=== PATIENT | male | born 1945 | race Caucasian/White ===

== ENCOUNTER → 2017-12-17 | Outpatient (CLI) | payer MEDICARE ==
--- NOTE | 2017-12-17 13:31 | XR ---
EXAMINATION TYPE: XR chest 2V DATE OF EXAM: 12/17/2017 COMPARISON: 04/07/2016 TECHNIQUE: PA and lateral views submitted. HISTORY: Left rib pain FINDINGS: The lungs are clear and there is no pneumothorax, pleural effusion, or focal pneumonia. Hypertrophi c change of the spine noted. There is a deformity of the left anterior seventh rib. IMPRESSION: 1. Findings suspicious for left anterior seventh rib fracture..
--- NOTE | 2017-12-17 13:32 | XR ---
EXAMINATION TYPE: XR ribs LT DATE OF EXAM: 12/17/2017 COMPARISON: NONE HISTORY: Pain TECHNIQUE: 4 views submitted FINDINGS: Deformity involving the anterolateral left seventh rib. Hypertrophic and degenerative adkins e of the spine. Slight deformity anterior lateral sixth rib. IMPRESSION: 1. Findings suspicious for minimally displaced fractures anterolateral left sixth and seventh ribs.
== END | disposition home or self-care (01) ==
LOC: RADXRYALE 11:38
PROVIDERS: ATTEND Internal Medicine
DX: S20.212A Contusion of left front wall of thorax, initial encounter (principal)
CPT/HCPCS: 71046

== ENCOUNTER 2018-06-28 09:54 | Observation (INO) | payer MEDICARE ==
[2018-06-28] MEDS ORDERED: SODIUM CHLORIDE 0.9% 1,000 ML IV STA (10:18)
--- NOTE | 2018-06-28 10:25 | ED ---
Abdominal Pain HPI - General Chief Complaint: Abdominal Pain Stated Complaint: pancreatitis Time Seen by Provider: 06/28/18 10:07 Source: patient, EMS, RN notes reviewed Mode of arrival: EMS Limitations: no limitations - History of Present Illness Initial Comments: This is a 73-year-old male who presents to the emergency department with chief complaint of abdominal pain. Patient states he feels he is having another episode of pancreatitis. He states he has had 7 episodes of pancreatitis in the past. Patient states that pain developed this morning at 7 AM. He describes the pain as sharp and stabbing and is located in the right lower abdomen. He states that this pain feels similar to the pain he has had in the past with other episodes of pancreatitis. Patient's only abdominal surgery has been a left hernia repair. Patient denies any testicular pain at this time. Patient denies fevers or chills, chest pain or shortness of breath, vomiting or diarrhea. He does state that earlier today he became clammy and felt nauseous. - Related Data Home Medications Medication Instructions Recorded Confirmed Losartan-Hctz 50-12.5 mg [Hyzaar 1 tab PO DAILY 05/02/15 06/28/18 50-12.5] Aspirin EC [Ecotrin Low Dose] 81 mg PO DAILY 06/28/18 06/28/18 Cholecalciferol [Vitamin D3] 1,000 unit PO HS 06/28/18 06/28/18 Allergies Allergy/AdvReac Type Severity Reaction Status Date / Time hydromorphone HCl AdvReac Anaphylaxis Verified 06/28/18 10:11 [From Dilaudid] Review of Systems ROS Statement: Those systems with pertinent positive or pertinent negative responses have been documented in the HPI. ROS Other: All systems not noted in ROS Statement are negative. Past Medical History Past Medical History: Hypertension Additional Past Medical History / Comment(s): pancreatitis History of Any Multi-Drug Resistant Organisms: None Reported Past Surgical History: Hernia Repair Past Psychological History: No Psychological Hx Reported Smoking Status: Never smoker Past Alcohol Use History: None Reported Past Drug Use History: None Reported General Exam - General Exam Comments Initial Comments: General: Awake and alert, well-developed; in no apparent distress. Pleasant and cooperative elderly male. is at bedside. HEENT: Head atraumatic, normocephalic. Pupils are equal, round and reactive to light. Extraocular movements intact. Oropharynx moist without erythema or exudate. Neck: Supple. Normal ROM. Cardiovascular: Regular rate and rhythm. No murmurs, rubs or gallops. Chest symmetrical. Respiratory: Lungs clear to auscultation bilaterally. No wheezes, rales or rhonchi. Normal respiratory effort with no use of accessory muscles. Abdomen: Firm, mildly distended. Tenderness on palpation of right lower quadrant with guarding. No rigidity. Non-reproducible mass noted in right inguinal region. Normal bowel sounds in all 4 quadrants. Musculoskeletal: Normal ROM, no tenderness bilateral upper and lower extremities. Skin: [place], warm and dry without rashes or lesions. Neurological: Alert and oriented x3. CN II-XII grossly intact. Speech is fluent and answers are appropriate. No focal neuro deficits. Psychiatric: Normal mood and affect. No overt signs of depression or anxiety noted. Limitations: no limitations Course Vital Signs 06/28/18 06/28/18 06/28/18 10:00 11:21 12:35 Temperature 97.9 F Pulse Rate 47 L 58 L 65 Respiratory 16 18 16 Rate Blood Pressure 171/81 170/84 181/87 O2 Sat by Pulse 98 98 98 Oximetry 06/28/18 06/28/18 13:29 14:00 Temperature 98.6 F Pulse Rate 47 L Respiratory 18 Rate Blood Pressure 160/77 139/68 O2 Sat by Pulse 98 Oximetry - Reevaluation(s) Reevaluation #1: Spoke with Dr. Huntley, radiologist who reports possible incarcerated right inguinal hernia as he does see inflammation and closed loop on computed tomography scan. This was discussed with patient who is resting comfortably at this time. He will be reexamined along with Dr. Ramirez. 06/28/18 12:24 Medical Decision Making - Medical Decision Making This is a 73-year-old male who presents to the emergency department with chief complaint of abdominal pain. Patient states he feels he is having another episode of pancreatitis as he has had 7 episodes in the past and this feels similar. However, on physical examination, there is tenderness with guarding at the right lower quadrant. Computed tomography scan of the abdomen and pelvis revealed evidence for a right inguinal hernia containing a segment of small bowel. CBC was within normal limits. Amylase is slightly elevated at 124 and lipase at 314. No evidence of acute pancreatitis on CT scan. Patient was reevaluated by myself and Dr. Ramirez. There is a mass palpated in the right inguinal region which is consistent with an incarcerated inguinal hernia. Patient will be admitted to Dr. Ryan. Patient is in agreement for admission. He is in no acute distress and pain is controlled. Computed tomography scan also revealed evidence for a 2 mm left lower lobe pulmonary nodule. This was discussed with patient and at bedside and recommended following up with primary care provider regarding this result. Patient is in agreement. - Lab Data Result diagrams: 06/28/18 09:59 06/28/18 09:59 Lab Results 06/28/18 06/28/18 06/28/18 Range/Units 09:59 09:59 12:10 WBC 5.8 (3.8-10.6) k/uL RBC 4.82 (4.30-5.90) m/uL Hgb 15.0 (13.0-17.5) gm/dL Hct 45.1 (39.0-53.0) % MCV 93.7 (80.0-100.0) fL MCH 31.2 (25.0-35.0) pg MCHC 33.3 (31.0-37.0) g/dL RDW 12.8 (11.5-15.5) % Plt Count 241 (150-450) k/uL Neutrophils % 72 % Lymphocytes % 18 % Monocytes % 7 % Eosinophils % 1 % Basophils % 1 % Neutrophils # 4.2 (1.3-7.7) k/uL Lymphocytes # 1.0 (1.0-4.8) k/uL Monocytes # 0.4 (0-1.0) k/uL Eosinophils # 0.1 (0-0.7) k/uL Basophils # 0.0 (0-0.2) k/uL Sodium 131 L (137-145) mmol/L Potassium 5.0 (3.5-5.1) mmol/L Chloride 95 L (98-107) mmol/L Carbon Dioxide 23 (22-30) mmol/L Anion Gap 13 mmol/L BUN 9 (9-20) mg/dL Creatinine 0.60 L (0.66-1.25) mg/dL Est GFR (CKD-EPI)AfAm >90 (>60 ml/min/1.73 sqM) Est GFR (CKD-EPI)NonAf >90 (>60 ml/min/1.73 sqM) Glucose 104 H (74-99) mg/dL Plasma Lactic Acid Peterson 0.9 (0.7-2.0) mmol/L Calcium 9.5 (8.4-10.2) mg/dL Total Bilirubin 1.0 (0.2-1.3) mg/dL AST 36 (17-59) U/L ALT 38 (21-72) U/L Alkaline Phosphatase 68 (38-126) U/L Total Protein 7.1 (6.3-8.2) g/dL Albumin 4.3 (3.5-5.0) g/dL Amylase 124 H (30-110) U/L Lipase 314 H (23-300) U/L Urine Color Urine Appearance (Clear) Urine pH (5.0-8.0) Ur Specific [place] (1.001-1.035) Urine Protein (Negative) Urine Glucose (UA) (Negative) Urine Ketones (Negative) Urine Blood (Negative) Urine Nitrite (Negative) Urine Bilirubin (Negative) Urine Urobilinogen (<2.0) mg/dL Ur Leukocyte Esterase (Negative) 06/28/18 Range/Units 12:10 WBC (3.8-10.6) k/uL RBC (4.30-5.90) m/uL Hgb (13.0-17.5) gm/dL Hct (39.0-53.0) % MCV (80.0-100.0) fL MCH (25.0-35.0) pg MCHC (31.0-37.0) g/dL RDW (11.5-15.5) % Plt Count (150-450) k/uL Neutrophils % % Lymphocytes % % Monocytes % % Eosinophils % % Basophils % % Neutrophils # (1.3-7.7) k/uL Lymphocytes # (1.0-4.8) k/uL Monocytes # (0-1.0) k/uL Eosinophils # (0-0.7) k/uL Basophils # (0-0.2) k/uL Sodium (137-145) mmol/L Potassium (3.5-5.1) mmol/L Chloride (98-107) mmol/L Carbon Dioxide (22-30) mmol/L Anion Gap mmol/L BUN (9-20) mg/dL Creatinine (0.66-1.25) mg/dL Est GFR (CKD-EPI)AfAm (>60 ml/min/1.73 sqM) Est GFR (CKD-EPI)NonAf (>60 ml/min/1.73 sqM) Glucose (74-99) mg/dL Plasma Lactic Acid Peterson (0.7-2.0) mmol/L Calcium (8.4-10.2) mg/dL Total Bilirubin (0.2-1.3) mg/dL AST (17-59) U/L ALT (21-72) U/L Alkaline Phosphatase (38-126) U/L Total Protein (6.3-8.2) g/dL Albumin (3.5-5.0) g/dL Amylase (30-110) U/L Lipase (23-300) U/L Urine Color Light Yellow Urine Appearance Clear (Clear) Urine pH 8.0 (5.0-8.0) Ur Specific [place] 1.017 (1.001-1.035) Urine Protein Negative (Negative) Urine Glucose (UA) Negative (Negative) Urine Ketones Negative (Negative) Urine Blood Negative (Negative) Urine Nitrite Negative (Negative) Urine Bilirubin Negative (Negative) Urine Urobilinogen <2.0 (<2.0) mg/dL Ur Leukocyte Esterase Negative (Negative) - Radiology Data Radiology results: report reviewed CT abdomen and pelvis with contrast impression: 1. There is a right inguinal hernia containing a segment of small bowel. There is some induration of the surrounding fat. Incarcerated hernia in the differential. Closed loop obstruction a consideration. Correlate clinically. 2. Correlate for mild chronic cystitis. Slightly asymmetric wall thickening along the right lateral margin of the bladder may be related to greater component of cystitis. Mucosal lesion not excluded. 3. Stable dilated pancreatic duct. 4. 2 mm left lower lobe pulmonary nodule too small to characterize could be followed on 6 month basis. Disposition Clinical Impression: Incarcerated right inguinal hernia, Left lower lobe pulmonary nodule Disposition: ADMITTED IP TO THIS [facility] Condition: Good Is patient prescribed a controlled substance at d/c from ED?: No Time of Disposition: 12:59
[2018-06-28 10:34] LABS: Basophils % (A) 1 %; Eosinophils # (A) 0.1 k/uL (0-0.7); Eosinophils % (A) 1 %; HCT 45.1 % (39.0-53.0); Lymphocytes % (A) 18 %; MCH 31.2 pg (25.0-35.0); MCHC 33.3 g/dL (31.0-37.0); MCV 93.7 fL (80.0-100.0); Mean Platelet Volume 6.6; Monocytes # (A) 0.4 k/uL (0-1.0); Monocytes % (A) 7 %; Neutrophils # (A) 4.2 k/uL (1.3-7.7); Neutrophils % (A) 72 %; Platelet Count 241 k/uL (150-450); RBC 4.82 m/uL (4.30-5.90); RDW 12.8 % (11.5-15.5); WBC 5.8 k/uL (3.8-10.6)
[2018-06-28 10:45] LABS: ALT 38 U/L (21-72); AST 36 U/L (17-59); Albumin 4.3 g/dL (3.5-5.0); Alkaline Phosphatase 68 U/L (38-126); Amylase 124 U/L (30-110); Anion Gap 13 mmol/L; Blood Urea Nitrogen 9 mg/dL (9-20); Calcium 9.5 mg/dL (8.4-10.2); Carbon Dioxide 23 mmol/L (22-30); Chloride 95 mmol/L (98-107); Glucose 104 mg/dL (74-99); Lipase 314 U/L (23-300); Sodium 131 mmol/L (137-145); Total Protein 7.1 g/dL (6.3-8.2)
[2018-06-28 12:22] LABS: Appearance,Urine Clear (Clear); Bilirubin,Urine Negative (Negative); Blood,Urine Negative (Negative); Color,Urine Light Yellow; Glucose,Urine (UA) Negative (Negative); Ketones,Urine Negative (Negative); Leukocyte Esterase,Urine Negative (Negative); Nitrite,Urine Negative (Negative); Protein,Urine Negative (Negative); Specific Gravity,Urine 1.017 (1.001-1.035); Urobilinogen,Urine <2.0 mg/dL (<2.0)
--- NOTE | 2018-06-28 12:25 | CT ---
EXAMINATION TYPE: CT abdomen pelvis w con DATE OF EXAM: 06/28/2018 COMPARISON: 05/30/2012 HISTORY: RLQ abdominal pain CT DLP: 1049 mGycm Automated exposure control for dose reduction was used. CONTRAST: CT scan of the abdomen pelvis is performed with IV Contrast, patient injected with 100 ml mL of Isovu e 300. FINDINGS- case discussed with ER referring clinician. LUNG BASES-there is a 2 mm nodule within the left lower lobe too small to characterize. Tiny bleb is seen. Coronary artery calcification noted.. LIVER/GB- No gross abnormality is appreciated. PANCREAS-stable prominence the pancreatic duct unchanged from prior exam.. SPLEEN- No gross abnormality is seen. ADRENALS- No gross abnormality is seen. KIDNEYS/BLADDER- no hydronephrosis or nephrolithiasis. Simple appearing left renal cyst noted.. BOWEL-appendix has a normal appearance. There is a right inguinal hernia containing a loop of small b owel. This may result in a degree of partial closed-loop obstruction. There does appear to be some quintanilla rrounding soft tissue edema within hernia sac. Correlate for incarceration or strangulation. No free fluid. Small hiatal hernia noted. Changes of diverticulosis of the colon. LYMPH NODES- No greater than 1cm abdominal or pelvic lymph nodes areappreciated. OSSEOUS STRUCTURES-hypertrophic and degenerative change of the spine. OTHER- atherosclerotic changes aorta with no evidence of aneurysm. There is mild thickening of the b ladder wall and there appears to be extension along the anterior lateral margin of the bladder wall o n the right which may represent a diverticulum. Findings stable. Metallic clips are seen near the scr otal sac. IMPRESSION- 1. There is a right inguinal hernia containing a segment of small bowel. There is some induration of the surrounding fat. Incarcerated hernia in the differential. Closed loop obstruction a consideration . Correlate clinically. 2. Correlate for mild chronic cystitis. Slightly asymmetric wall thickening along the right lateral m argin of the bladder may be related to greater component of cystitis. Mucosal lesion not excluded. 3. Stable dilated pancreatic duct. 4. 2 mm left lower lobe pulmonary nodule too small to characterize could be followed on six-month bas is.
[2018-06-28] MEDS ORDERED: KETOROLAC 30 MG/ML 1 ML VIAL IVP STA (13:08)
[2018-06-28] MEDS ORDERED: KETOROLAC 30 MG/ML 1 ML VIAL IVP PRN (13:10)
[2018-06-28] MEDS ORDERED: ACETAMINOPHEN TAB 325 MG TAB PO PRN (13:10)
[2018-06-28] MEDS ORDERED: NALOXONE 0.4 MG/ML 1 ML VIAL IV PRN (13:10)
[2018-06-28] MEDS ORDERED: ONDANSETRON 4 MG/2 ML VIAL IVP PRN ×2 (13:10→14:16)
[2018-06-28] MEDS ORDERED: hydrALAZINE HCL 20 MG/ML 1 ML VIAL IVP STA (13:23)
--- NOTE | 2018-06-28 13:56 | P.GSHP ---
History of Present Illness H&P Date: 06/28/18 Chief Complaint: Pain in the right groin The patient is a 73-year-old white male who developed the pain in the right groin since this morning at least about 5 or 6 hours ago progressively worsening. He presented to the emergency room. No past history of similar pain although has had multiple episodes of pancreatitis in the past. Slight nausea. No vomiting. Computed tomography scan revealed evidence of an incarcerated right inguinal hernia with the loop of small bowel in it though with some edema in the sac. Past history is otherwise healthy. Has a history of hypertension on Hyzaar. Takes baby aspirin daily and vitamin D. Previous surgery includes a left inguinal hernia repair and colonoscopies. No complications. Family history noncontributory. Systems review otherwise negative. No chest pain no cough hemoptysis. Some nausea. No urinary symptoms. Habits and he denies any rectal bleeding. Does have a history of the colon polyps. On examination the patient is awake alert well-built well-nourished in no acute distress quite cheerful. Vitals are normal. Fever. Hydration is good. Head and neck are normal. No cervical lymphadenopathy. Heart regular rhythm no murmurs. Lungs are clear to P&A. Abdomen is mildly distended. Has very localized tenderness in the right groin with a mass consistent with an incarcerated right inguinal hernia. It's quite tender. Irreducible. Scar in the left groin from previous hernia repair. Extremities normal with full motion. [employer] grossly intact no focal deficits. Impression incarcerated the right inguinal hernia. History of hypertension. Recommendation recommend immediate surgical intervention with repair the right inguinal hernia with or without mesh possible bowel resection. Procedure was explained to the patient including potential complication particular bleeding infection hematoma seroma increased risk for bleeding since he is currently takes aspirin etc. He understood and agree to proceed. Past Medical History Past Medical History: Hypertension Additional Past Medical History / Comment(s): pancreatitis History of Any Multi-Drug Resistant Organisms: None Reported Past Surgical History: Hernia Repair Past Psychological History: No Psychological Hx Reported Smoking Status: Never smoker Past Alcohol Use History: None Reported Past Drug Use History: None Reported Medications and Allergies Home Medications Medication Instructions Recorded Confirmed Type Losartan-Hctz 50-12.5 mg [Hyzaar 1 tab PO DAILY 05/02/15 06/28/18 History 50-12.5] Aspirin EC [Ecotrin Low Dose] 81 mg PO DAILY 06/28/18 06/28/18 History Cholecalciferol [Vitamin D3] 1,000 unit PO HS 06/28/18 06/28/18 History Allergies Allergy/AdvReac Type Severity Reaction Status Date / Time hydromorphone HCl AdvReac Anaphylaxis Verified 06/28/18 10:11 [From Dilaudid] Surgical - Exam Vital Signs Temp Pulse Resp BP Pulse Ox 97.9 F 47 L 16 171/81 98 06/28/18 10:00 06/28/18 10:00 06/28/18 10:00 06/28/18 10:00 06/28/18 10:00 Results - Labs 06/28/18 09:59 06/28/18 09:59 Abnormal Lab Results - Last 24 Hours (Table) 06/28/18 Range/Units 09:59 Sodium 131 L (137-145) mmol/L Chloride 95 L (98-107) mmol/L Creatinine 0.60 L (0.66-1.25) mg/dL Glucose 104 H (74-99) mg/dL Amylase 124 H (30-110) U/L Lipase 314 H (23-300) U/L Diabetes panel 06/28/18 Range/Units 09:59 Sodium 131 L (137-145) mmol/L Potassium 5.0 (3.5-5.1) mmol/L Chloride 95 L (98-107) mmol/L Carbon Dioxide 23 (22-30) mmol/L BUN 9 (9-20) mg/dL Creatinine 0.60 L (0.66-1.25) mg/dL Glucose 104 H (74-99) mg/dL Calcium 9.5 (8.4-10.2) mg/dL AST 36 (17-59) U/L ALT 38 (21-72) U/L Alkaline Phosphatase 68 (38-126) U/L Total Protein 7.1 (6.3-8.2) g/dL Albumin 4.3 (3.5-5.0) g/dL Calcium panel 06/28/18 Range/Units 09:59 Calcium 9.5 (8.4-10.2) mg/dL Albumin 4.3 (3.5-5.0) g/dL Pituitary panel 06/28/18 Range/Units 09:59 Sodium 131 L (137-145) mmol/L Potassium 5.0 (3.5-5.1) mmol/L Chloride 95 L (98-107) mmol/L Carbon Dioxide 23 (22-30) mmol/L BUN 9 (9-20) mg/dL Creatinine 0.60 L (0.66-1.25) mg/dL Glucose 104 H (74-99) mg/dL Calcium 9.5 (8.4-10.2) mg/dL Adrenal panel 06/28/18 Range/Units 09:59 Sodium 131 L (137-145) mmol/L Potassium 5.0 (3.5-5.1) mmol/L Chloride 95 L (98-107) mmol/L Carbon Dioxide 23 (22-30) mmol/L BUN 9 (9-20) mg/dL Creatinine 0.60 L (0.66-1.25) mg/dL Glucose 104 H (74-99) mg/dL Calcium 9.5 (8.4-10.2) mg/dL Total Bilirubin 1.0 (0.2-1.3) mg/dL AST 36 (17-59) U/L ALT 38 (21-72) U/L Alkaline Phosphatase 68 (38-126) U/L Total Protein 7.1 (6.3-8.2) g/dL Albumin 4.3 (3.5-5.0) g/dL
[2018-06-28] MEDS ORDERED: ceFAZolin 2,000 MG in DEXTROSE/WATER 1 50ML.BAG IVPB STA (13:57)
[2018-06-28] MEDS ORDERED: ceFAZolin IN SWFI 2 GM/20 ML SYRINGE IVP STA (13:59)
[2018-06-28] MEDS ORDERED: IV FLUID CONTINUATION 1,000 ML IV ONE (14:12)
[2018-06-28] MEDS ORDERED: fentaNYL (PF) 50 MCG/ML 2 ML AMP ONE (14:34)
[2018-06-28] MEDS ORDERED: LIDOCAINE 1% INJ 10MG/ML (20 ML MDV) ONE (14:34)
[2018-06-28] MEDS ORDERED: ROCURONIUM BROMIDE 10 MG/ML 10 ML VIAL IV ONE (14:34)
[2018-06-28] MEDS ORDERED: PROPOFOL 10 MG/ML 20 ML VIAL IV ONE (14:34)
[2018-06-28] MEDS ORDERED: MIDAZOLAM 2 MG/2 ML VIAL ONE (14:34)
[2018-06-28] MEDS ORDERED: NEOSTIGMINE 1 MG/ML 10 ML VIAL ONE (14:34)
[2018-06-28] MEDS ORDERED: ePHEDrine SULFATE/0.9% NACL/PF 50 MG/5 ML SYRINGE IV ONE (14:34)
[2018-06-28] MEDS ORDERED: GLYCOPYRROLATE 0.2 MG/ML 2 ML VIAL ONE (14:34)
[2018-06-28] MEDS ORDERED: SUCCINYLCHOLINE CHLORIDE 100 MG/5 ML SYR IV ONE (14:34)
[2018-06-28] MEDS ORDERED: SODIUM CHLORIDE 0.9% 100 ML with ceFAZolin 2,000 MG IV ONE ×2 (14:45)
[2018-06-28] MEDS ORDERED: ROPIVACAINE 5 MG/ML 30 ML VIAL MISCELLANE ONE ×2 (14:51)
[2018-06-28] MEDS ORDERED: LACTATED RINGERS 1,000 ML IV ONE (15:13)
--- NOTE | 2018-06-28 15:53 | P.OP ---
Date of Procedure: 06/28/18 Preoperative Diagnosis: Incarcerated right inguinal hernia Postoperative Diagnosis: Incarcerated right inguinal hernia direct Procedure(s) Performed: Right inguinal hernia repair with Prolene mesh Anesthesia: VITALY Surgeon: Len Walker Estimated Blood Loss (ml): 10 Pathology: none sent Condition: stable Disposition: PACU Indications for Procedure: The patient is a 73-year-old white male with about 5-6 hour history of a painful mass in the right groin. When examined he had a very tender mass in the right inguinal hip area to the intended to try to reduce. CT confirmed an incarcerated right inguinal hernia containing small bowel. Immediate repair was recommended and informed consent was obtained. Operative Findings: Incarcerated right direct inguinal hernia Description of Procedure: After induction of general endotracheal anesthesia the abdominal wall groin and genitalia were prepped and fashion and draped. Local anesthetic Marcaine 0.5% plain was infiltrated into the skin and subcutaneous tissues along the line of the incision which was made above and parallel to the right inguinal ligament. The external oblique aponeurosis was then infiltrated with the Marcaine and incised in the direction of its fibers. Upper and lower flaps were created. During this dissection the hernia spontaneously reduced the direct the type of hernia protruding through the floor. There was no significant edema or swelling or infection or drainage from the sac. The cord structures were explored and there was no evidence of any indirect component. The direct defect was closed by approximation of the transversalis fascia with running 2-0 Prolene. The floor was then reinforced with the Prolene mesh one and three- quarter inches by 2 and three-quarter inches to the pubic tubercle and shelving edge of the inguinal ligament with running 2-0 Prolene inferiorly and to the conjoined tendon and internal oblique aponeurosis superiorly. The tails were then approximated after the mesh was split laterally to the cord structures with the Prolene with a snug fit around the cord structures at the internal ring with the upper flap being approximated to the lower flap as well as to the shelving edge of the inguinal ligament. The wound with thoroughly irrigated. Ilioinguinal nerve was left intact. The external oblique aponeurosis were then closed over the cord structures with running 3-0 Prolene Kristan's fascia with interrupted 4-0 Vicryl and the skin with 4-0 Monocryl subcuticular suture and Steri-Strips. Dressings were applied. All counts were correct. Blood loss was negligible less than 5 mls. The patient remained stable was transferred to the recovery room in good and stable condition.
[2018-06-28] MEDS ORDERED: ceFAZolin 2,000 MG in DEXTROSE/WATER 1 50ML.BAG IVPB SCH (16:00)
[2018-06-28 16:09] VITALS: RESP 16
[2018-06-28] MEDS: SODIUM CHLORIDE 0.9% 1,000 ML IV SCH (16:49)
[2018-06-28 16:54] VITALS: BMI 26.6
[2018-06-28] MEDS: traMADol 50 MG TAB PO SCH ×2 (17:51→21:13)
[2018-06-28] MEDS ORDERED: METOCLOPRAMIDE 5 MG/ML 2 ML VIAL IVP PRN (18:00)
[2018-06-28] MEDS: ceFAZolin IN SWFI 2 GM/20 ML SYRINGE IVP SCH (21:12)
[2018-06-29] MEDS: ceFAZolin IN SWFI 2 GM/20 ML SYRINGE IVP SCH (05:15)
[2018-06-29] MEDS: SODIUM CHLORIDE 0.9% 1,000 ML IV SCH (05:16)
--- NOTE | 2018-06-29 06:42 | CONS ---
CONSULTATION DATE OF SERVICE: 06/28/2018 REASON FOR CONSULTATION: Advice regarding hypertension and multiple other medical issues requested by Dr. Walker. HISTORY OF PRESENT ILLNESS: This 73-year-old gentleman with a past medical history of hypertension, pancreatitis being followed by Dr. Jordan in the outpatient setting was admitted with abdominal pain and features incarcerated right inguinal hernia. Dr. Walker performed right inguinal hernia repair with Prolene mesh. The patient tolerated the procedure well. There is no history of chest pain. No history of palpitations. No history of headache, loss of consciousness, nausea, vomiting, diarrhea, fever, rigors or chills. PAST MEDICAL HISTORY: History of hypertension, history of pancreatitis. MEDICATIONS: Medications prior to admission include: 1. Losartan hydrochlorothiazide 50/12.5 mg p.o. daily. 2. Vitamin D3, 1000 at bedtime. 3. Ecotrin 81 mg p.o. daily. ALLERGIES: Allergies are DILAUDID. FAMILY HISTORY: No history of heart disease or strokes in the family. SOCIAL HISTORY: No history of smoking. No history of alcohol intake. REVIEW OF SYSTEMS: ENT: No diminished hearing or diminished vision. CARDIOVASCULAR SYSTEM: No angina. RESPIRATORY SYSTEM: No cough or hemoptysis. GI: As mentioned earlier. : No dysuria. NERVOUS SYSTEM: No numbness or weakness. ALLERGY/IMMUNOLOGY: No history of asthma or hayfever. MUSCULOSKELETAL: As mentioned earlier. HEMATOLOGY: No history of anemia. ENDOCRINE: No history of diabetes or hypothyroidism. CONSTITUTIONAL: As mentioned earlier. DERMATOLOGY: Negative. RHEUMATOLOGY: Negative. PSYCHIATRY: As mentioned earlier. PHYSICAL EXAMINATION: The patient is alert and oriented x3. The pulse is 82, blood pressure 144/76, respirations 16, temperature 98 degrees, pulse ox 96% on room air. HEENT: Conjunctivae normal. Oral mucosa moist. NECK: No jugular venous distention. No carotid bruit. No lymph node enlargement. CARDIOVASCULAR: S1 and S2 muffled. RESPIRATORY: Breath sounds diminished at the bases. No rhonchi. No crackles. ABDOMEN: Soft. Otherwise, status post surgery. LEGS: No edema, no swelling. NERVOUS SYSTEM: Higher functions as mentioned earlier. Moves all 4 limbs. No focal motor or sensory deficits. LYMPHATICS: No lymphadenopathy of the neck, axillae or groin. SKIN: No ulcer, rash or bleeding. LABS: CBC within normal limits. Sodium is 131. Amylase 124 and lipase 314. ASSESSMENT: 1. Status post right inguinal hernia repair for incarcerated right inguinal hernia. 2. Hypertension. 3. Mild hyponatremia. 4. Increased amylase, lipase. RECOMMENDATIONS AND DISCUSSION: This 73-year-old gentleman who presented with multiple medical issues. At this time, I recommend to continue and resume the home medications, DVT prophylaxis and incentive spirometry. Repeat labs. Recommend close follow up with Dr. Jordan in the outpatient setting. Thank you Dr. Walker for letting us participate in the care of this patient. MMODL / IJN: [id number] /
--- NOTE | 2018-06-29 07:47 | P.DS ---
Providers Date of admission: 06/28/18 13:24 Attending physician: Len Walker Consults: 06/28/18 15:43 Consult Physician Routine Consulting Provider: Armani Younger Consult Reason/Comments: medical mx Do you want consulting provider notified?: Yes Primary care physician: Carito Jordan Patient Condition at Discharge: Good Plan - Discharge Summary Discharge Rx Participant: No New Discharge Prescriptions: New traMADol HCl [Ultram] 50 mg PO Q4HR PRN 3 Days #18 tab PRN Reason: Pain No Action Losartan-Hctz 50-12.5 mg [Hyzaar 50-12.5] 1 tab PO DAILY Cholecalciferol [Vitamin D3] 1,000 unit PO HS Discharge Medication List Losartan-Hctz 50-12.5 mg [Hyzaar 50-12.5] 1 tab PO DAILY 05/02/15 [History] Cholecalciferol [Vitamin D3] 1,000 unit PO HS 06/28/18 [History] traMADol HCl [Ultram] 50 mg PO Q4HR PRN 3 Days #18 tab 06/29/18 [Rx] Follow up Appointment(s)/Referral(s): Len Walker MD [STAFF PHYSICIAN] - 1 Week Carito Jordan MD [Primary Care Provider] - 2 Weeks Activity/Diet/Wound Care/Special Instructions: Remove dressing tomorrow a.m. May shower from tomorrow. Ambulate 4-5 times a day. No heavy lifting or straining for a month. Hold aspirin for 3 days. Colace 1 daily. Laxative as needed.
[2018-06-29 07:51] LABS: Amylase 52 U/L (30-110); Lipase 58 U/L (23-300)
--- NOTE | 2018-06-29 07:55 | P.PN ---
Progress Note - Text Progress Note Date: 06/29/18 The patient had repair for an incarcerated right inguinal hernia with mesh yesterday. Coming along fairly well. Tolerated his dinner last night and breakfast. Denies nausea or vomiting. Passing flatus. On examination he is afebrile. Vitals are stable. Abdomen is fairly soft nondistended. No significant swelling in the right groin and no hematoma or significant bruising. Testicle is of normal size. Royal impression satisfactory postoperative course. Recommendation we'll discharge today. Follow-up in the office in a week. Hold aspirin for 3 days. Tramadol for pain. No heavy lifting for a month.
[2018-06-29 08:55] VITALS: BP 159/80; PULSE 69; TEMP 98.8
[2018-06-29] MEDS ORDERED: LOSARTAN-HCTZ 50-12.5 MG 1 EACH TAB PO SCH (09:00)
[2018-06-29] MEDS ORDERED: DOCUSATE 100 MG CAP PO SCH (09:00)
[2018-06-29] MEDS: traMADol 50 MG TAB PO SCH (10:33)
--- NOTE | 2018-06-29 15:17 | P.PN ---
Subjective Patient is admitted for right inguinal hernia repair patient is clinically doing well postoperatively is being discharged today. Patient did not receive any antidepressants medications here patient blood pressures bit elevated but patient is bit hyponatremic because of which had chlorothiazide will be discontinued patient will be discharged on losartan and he may require a higher dose of losartan because of high normal potassium I'm not increasing it. Patient was asked to check the blood pressure at home and take it to though she can titrate the medications. And hydrochlorothiazide will be discontinued because of hyponatremia. Constitutional: Denied any fatigue denied any fever. Cardio vascular: denied any chest pain, palpitations Gastrointestinal denied any nausea vomiting Pulmonary: Denied any shortness of breath cough Neurologic denied any new focal deficits Objective - Vital Signs Vital signs: Vital Signs Temp 98.8 F 06/29/18 07:54 Pulse 69 06/29/18 07:54 Resp 16 06/29/18 07:54 BP 159/80 06/29/18 07:54 Pulse Ox 94 L 06/29/18 07:54 Intake & Output 06/28/18 06/29/18 06/29/18 18:59 06:59 18:59 Intake Total 700 1000 250 Output Total 510 950 650 Balance 190 50 -400 Weight 74.843 kg Intake: IV 700 Intake, IV Titration 800 Amount Sodium Chloride 0.9% 100 800 ml @ 0 mls/hr IV .STK-MED ONE with ceFAZolin 2,000 mg Rx#:[id number] Oral 250 Other 200 Output: Urine 500 950 650 Estimated Blood Loss 10 - Exam PHYSICAL EXAMINATION: GENERAL: The patient is alert and oriented x3, not in any acute distress. Well developed, well nourished. HEENT: Pupils are round and equally reacting to light. EOMI. No scleral icterus. No conjunctival pallor. Normocephalic, atraumatic. No pharyngeal erythema. No thyromegaly. CARDIOVASCULAR: S1 and S2 present. No murmurs, rubs, or gallops. PULMONARY: Chest is clear to auscultation, no wheezing or crackles. ABDOMEN: Soft, nontender, nondistended, normoactive bowel sounds. No palpable organomegaly. MUSCULOSKELETAL: No joint swelling or deformity. EXTREMITIES: No cyanosis, clubbing, or pedal edema. NEUROLOGICAL: Gross neurological examination did not reveal any focal deficits. SKIN: No rashes. - Labs CBC & Chem 7: 06/28/18 09:59 06/28/18 09:59 Labs: Microbiology - Last 24 Hours (Table) 06/28/18 12:10 Blood Culture - Preliminary Blood No Growth after 24 hours Assessment and Plan Plan: -Status post repair of incarcerated right inguinal hernia -Hypertension further management as mentioned above -Hyponatremia secondary to hydrochlorothiazide which is being discontinued
[2018-06-29] MEDS ORDERED: CHOLECALCIFEROL 1,000 UNIT TAB PO SCH (21:00)
== END 2018-06-29 11:19 | disposition home or self-care (01) ==
LOC: EC 09:54 → 3SUR 13:24
PROVIDERS: ADMIT Surgery; ATTEND Surgery
DX: K40.30 Unilateral inguinal hernia, with obstruction, without gangrene, not specified as recurrent (principal); R91.1 Solitary pulmonary nodule; K85.90 Acute pancreatitis without necrosis or infection, unspecified; I10 Essential (primary) hypertension; E87.1 Hypo-osmolality and hyponatremia; T50.2X5A Adverse effect of carbonic-anhydrase inhibitors, benzothiadiazides and other diuretics, initial encounter; R50.9 Fever, unspecified; I69.351 Hemiplegia and hemiparesis following cerebral infarction affecting right dominant side; Z86.010 Personal history of colon polyps; Z79.899 Other long term (current) drug therapy; Z79.82 Long term (current) use of aspirin; Z88.5 Allergy status to narcotic agent
CPT/HCPCS: 49507; 99285; 96361 ×2; 96374 ×2; 36415; 80053; 82150 ×2; 83605; 83690 ×2; 85025; 81003; 87040; 74177; G0378 ×2; C1781; J2250; J2710; J2001; J3010; J1885; J0690 ×3; J2795; J0330; J2704; Q9967

== ENCOUNTER → 2021-01-30 | Outpatient (CLI) | payer MEDICARE ==
--- NOTE | 2021-01-30 17:15 | XR ---
Right shoulder HISTORY: Right shoulder pain 3 views the right shoulder Bone mineralization, joint spaces and alignment are maintained. Right lung as visualized is normal. S ome mild spurring present at the acromioclavicular joint. IMPRESSION: Acromioclavicular joint arthropathy.
== END ==
LOC: RADXRYALE 16:25
PROVIDERS: ATTEND Internal Medicine
DX: M12.811 Other specific arthropathies, not elsewhere classified, right shoulder (principal)

== ENCOUNTER 2021-02-08 18:35 | Emergency (ER) | payer MEDICARE ==
[2021-02-08 18:41] VITALS: RESP 18; TEMP 97.6
[2021-02-08] MEDS ORDERED: SODIUM CHLORIDE 0.9% 1,000 ML IV STA (19:08)
[2021-02-08] MEDS ORDERED: KETOROLAC 15 MG/ML 1 ML VIAL IVP STA (19:08)
[2021-02-08] MEDS ORDERED: ONDANSETRON 4 MG/2 ML VIAL IVP STA (19:08)
--- NOTE | 2021-02-08 19:11 | ED ---
Abdominal Pain HPI - General Chief Complaint: Abdominal Pain Stated Complaint: Abd pain Time Seen by Provider: 02/08/21 18:58 Source: patient Mode of arrival: ambulatory Limitations: no limitations - History of Present Illness Initial Comments: Patient is a 76-year-old male, with history of hypertension, pancreatitis, presenting to the emergency Department with concerns of possible pancreatitis. Patient states he started having some abdominal pain this morning, seems to be in the middle of his abdomen also epigastric area. He denies any radiation. He states he was outside helping his son for most of the day, did not drink any water. Patient states when he got back and he did drink a ton of water and it did seem to help his pain but he came in for evaluation anyway. He does admit to some mild nausea, no vomiting. He denies any fever or chills, no chest pain or shortness of breath. He states he had a normal bowel movement today. He den ies any hematuria or dysuria. He has history of 2 hernia repairs, no other abdominal surgeries. He has no further complaints at this time. Upon arrival to the ER, his vital signs are stable. - Related Data Home Medications Medication Instructions Recorded Confirmed Cholecalciferol [Vitamin D3] 1,000 unit PO HS 06/28/18 06/28/18 Previous Rx's Medication Instructions Recorded Losartan [Cozaar] 50 mg PO DAILY #30 tab 06/29/18 traMADol HCl [Ultram] 50 mg PO Q4HR PRN 3 Days #18 tab 06/29/18 Allergies Allergy/AdvReac Type Severity Reaction Status Date / Time hydromorphone HCl AdvReac Anaphylaxis Verified 02/08/21 18:40 [From Dilaudid] Review of Systems ROS Statement: Those systems with pertinent positive or pertinent negative responses have been documented in the HPI. ROS Other: All systems not noted in ROS Statement are negative. Past Medical History Past Medical History: Hypertension Additional Past Medical History / Comment(s): pancreatitis History of Any Multi-Drug Resistant Organisms: None Reported Past Surgical History: Hernia Repair Past Psychological History: No Psychological Hx Reported Smoking Status: Former smoker Past Alcohol Use History: None Reported Past Drug Use History: None Reported General Exam - General Exam Comments Initial Comments: GENERAL: Patient is well-developed and well-nourished. Patient is nontoxic and in no acute distress. HEAD: Atraumatic, normocephalic. EYES: Pupils equal round and reactive to light, extraocular movements intact, sclera anicteric, conjunctiva are normal. Eyelids were unremarkable. ENT: TMs normal, nares patent, oropharynx clear without exudates. Moist mucous membranes. NECK: Normal range of motion, supple without lymphadenopathy or JVD. LUNGS: Unlabored respirations. Breath sounds clear to auscultation bilaterally and equal. No wheezes rales or rhonchi. HEART: Regular rate and rhythm without murmurs, rubs or gallops. ABDOMEN: Soft, mildly tender epigastric area, normoactive bowel sounds. No guarding, no rebound. No masses appreciated. : Deferred MUSCULOSKELETAL: Normal extremities with adequate strength and normal range of motion, no pitting or edema. No clubbing or cyanosis. NEUROLOGICAL: Patient is alert and oriented x 3. Motor and sensory are also intact. Cranial nerves II through XII grossly intact. Symmetrical smile. Normal speech, normal gait. PSYCH: Normal mood, normal affect. SKIN: Warm, Dry, normal turgor, no rashes or lesions noted. Limitations: no limitations Course Vital Signs 02/08/21 02/08/21 18:38 22:40 Temperature 97.6 F Pulse Rate 81 71 Respiratory 18 18 Rate Blood Pressure 160/90 154/94 O2 Sat by Pulse 98 98 Oximetry Medical Decision Making - Medical Decision Making Patient is a 76-year-old male with history hypertension, pancreatitis, prese nting with concerns of abdominal pain that started this morning. He does have some mild nausea. He is mildly tender in epigastric area. No fevers, normal bowel movements. His vital signs are stable. Labs show a mildly elevated white count at 14.1, sodium is low at 127, lactic acid is normal at 0.9. Amylase is elevated at almost 2000, lipase is 14,000, urine is normal. KUB shows no acute process. Patient was given a liter bolus, Zofran and some Toradol. He has been resting very comfortably in the ER. I discussed with patient that I do recommend admission for pancreatitis, hyponatremia. Patient states that he has dealt with this before and just wants to be discharged home. I discussed the risks of complications surrounding pancreatitis and hyponatremia, including , and patient still wishes to be discharged home. He states he'll follow- up with his doctor on Wednesday for repeat labs. Patient will sign out AMA. Strict return parameters were discussed with the patient and he verbalized understanding. Case discussed with Dr. Bay. - Lab Data Result diagrams: 02/08/21 19:14 02/08/21 19:14 Lab Results 02/08/21 02/08/21 02/08/21 Range/Units 19:14 19:14 19:14 WBC 14.1 H (3.8-10.6) k/uL RBC 4.55 (4.30-5.90) m/uL Hgb 14.3 (13.0-17.5) gm/dL Hct 42.6 (39.0-53.0) % MCV 93.5 (80.0-100.0) fL MCH 31.4 (25.0-35.0) pg MCHC 33.6 (31.0-37.0) g/dL RDW 12.8 (11.5-15.5) % Plt Count 251 (150-450) k/uL MPV 7.2 Neutrophils % 86 % Lymphocytes % 8 % Monocytes % 4 % Eosinophils % 1 % Basophils % 0 % Neutrophils # 12.2 H (1.3-7.7) k/uL Lymphocytes # 1.1 (1.0-4.8) k/uL Monocytes # 0.6 (0-1.0) k/uL Eosinophils # 0.1 (0-0.7) k/uL Basophils # 0.1 (0-0.2) k/uL PT 10.4 (9.0-12.0) sec INR 1.0 (<1.2) APTT 25.4 (22.0-30.0) sec Sodium 127 L (137-145) mmol/L Potassium 4.3 (3.5-5.1) mmol/L Chloride 92 L (98-107) mmol/L Carbon Dioxide 25 (22-30) mmol/L Anion Gap 10 mmol/L BUN 14 (9-20) mg/dL Creatinine 0.61 L (0.66-1.25) mg/dL Est GFR (CKD-EPI)AfAm >90 (>60 ml/min/1.73 sqM) Est GFR (CKD-EPI)NonAf >90 (>60 ml/min/1.73 sqM) Glucose 100 H (74-99) mg/dL Plasma Lactic Acid Peterson (0.7-2.0) mmol/L Calcium 9.6 (8.4-10.2) mg/dL Total Bilirubin 0.9 (0.2-1.3) mg/dL AST 82 H (17-59) U/L ALT 46 (4-49) U/L Alkaline Phosphatase 80 (38-126) U/L Total Protein 7.3 (6.3-8.2) g/dL Albumin 4.3 (3.5-5.0) g/dL Amylase 1984 H* (30-110) U/L Lipase 68032 H (23-300) U/L Urine Color Urine Appearance (Clear) Urine pH (5.0-8.0) Ur Specific [place] (1.001-1.035) Urine Protein (Negative) Urine Glucose (UA) (Negative) Urine Ketones (Negative) Urine Blood (Negative) Urine Nitrite (Negative) Urine Bilirubin (Negative) Urine Urobilinogen (<2.0) mg/dL Ur Leukocyte Esterase (Negative) 02/08/21 02/08/21 Range/Units 19:14 20:51 WBC (3.8-10.6) k/uL RBC (4.30-5.90) m/uL Hgb (13.0-17.5) gm/dL Hct (39.0-53.0) % MCV (80.0-100.0) fL MCH (25.0-35.0) pg MCHC (31.0-37.0) g/dL RDW (11.5-15.5) % Plt Count (150-450) k/uL MPV Neutrophils % % Lymphocytes % % Monocytes % % Eosinophils % % Basophils % % Neutrophils # (1.3-7.7) k/uL Lymphocytes # (1.0-4.8) k/uL Monocytes # (0-1.0) k/uL Eosinophils # (0-0.7) k/uL Basophils # (0-0.2) k/uL PT (9.0-12.0) sec INR (<1.2) APTT (22.0-30.0) sec Sodium (137-145) mmol/L Potassium (3.5-5.1) mmol/L Chloride (98-107) mmol/L Carbon Dioxide (22-30) mmol/L Anion Gap mmol/L BUN (9-20) mg/dL Creatinine (0.66-1.25) mg/dL Est GFR (CKD-EPI)AfAm (>60 ml/min/1.73 sqM) Est GFR (CKD-EPI)NonAf (>60 ml/min/1.73 sqM) Glucose (74-99) mg/dL Plasma Lactic Acid Peterson 0.9 (0.7-2.0) mmol/L Calcium (8.4-10.2) mg/dL Total Bilirubin (0.2-1.3) mg/dL AST (17-59) U/L ALT (4-49) U/L Alkaline Phosphatase (38-126) U/L Total Protein (6.3-8.2) g/dL Albumin (3.5-5.0) g/dL Amylase (30-110) U/L Lipase (23-300) U/L Urine Color Yellow Urine Appearance Clear (Clear) Urine pH 7.0 (5.0-8.0) Ur Specific [place] 1.011 (1.001-1.035) Urine Protein Negative (Negative) Urine Glucose (UA) Negative (Negative) Urine Ketones Negative (Negative) Urine Blood Negative (Negative) Urine Nitrite Negative (Negative) Urine Bilirubin Negative (Negative) Urine Urobilinogen <2.0 (<2.0) mg/dL Ur Leukocyte Esterase Negative (Negative) Disposition Clinical Impression: Pancreatitis, Hyponatremia Disposition: Left Against Medical Advice Instructions (If sedation given, give patient instructions): Pancreatitis (ED) Additional Instructions: Please return to the Emergency Department if symptoms worsen or any other concerns. These follow-up with your primary care physician on Wednesday to recheck sodium levels and lipase. Continue with clear liquid diet for one to 2 days. Is patient prescribed a controlled substance at d/c from ED?: No Referrals: Carito Jordan MD [Primary Care Provider] - 1-2 days
[2021-02-08 19:23] LABS: Basophils # (A) 0.1 k/uL (0-0.2); Basophils % (A) 0 %; Eosinophils # (A) 0.1 k/uL (0-0.7); Eosinophils % (A) 1 %; HCT 42.6 % (39.0-53.0); HGB 14.3 gm/dL (13.0-17.5); Lymphocytes # (A) 1.1 k/uL (1.0-4.8); Lymphocytes % (A) 8 %; MCH 31.4 pg (25.0-35.0); MCHC 33.6 g/dL (31.0-37.0); MCV 93.5 fL (80.0-100.0); Mean Platelet Volume 7.2; Monocytes # (A) 0.6 k/uL (0-1.0); Monocytes % (A) 4 %; Neutrophils # (A) 12.2 k/uL (1.3-7.7); Neutrophils % (A) 86 %; Platelet Count 251 k/uL (150-450); RBC 4.55 m/uL (4.30-5.90); RDW 12.8 % (11.5-15.5); WBC 14.1 k/uL (3.8-10.6)
[2021-02-08 19:38] LABS: Partial Thromboplastin Time 25.4 sec (22.0-30.0); Prothrombin Time 10.4 sec (9.0-12.0)
--- NOTE | 2021-02-08 19:45 | XR ---
EXAMINATION TYPE: XR KUB DATE OF EXAM: 02/08/2021 COMPARISON: 05/02/2015 HISTORY: Double pain TECHNIQUE: 2 views FINDINGS: The bowel gas pattern is normal. There is no sign of intestinal obstruction or pneumoperito neum. Fecal pattern is normal. There are no pathologic calcifications over the kidneys. There is mild spurring in the lower lumbar spine. Lung bases are clear. IMPRESSION: Nonacute abdomen. No adverse change.
[2021-02-08 19:53] LABS: ALT 46 U/L (4-49); AST 82 U/L (17-59); African American GFR (CKD) >90 (>60 ml/min/1.73 sqM); Albumin 4.3 g/dL (3.5-5.0); Alkaline Phosphatase 80 U/L (38-126); Anion Gap 10 mmol/L; Blood Urea Nitrogen 14 mg/dL (9-20); Calcium 9.6 mg/dL (8.4-10.2); Carbon Dioxide 25 mmol/L (22-30); Chloride 92 mmol/L (98-107); Glucose 100 mg/dL (74-99); Non-African American GFR(CKD) >90 (>60 ml/min/1.73 sqM); Potassium 4.3 mmol/L (3.5-5.1); Sodium 127 mmol/L (137-145); Total Bilirubin 0.9 mg/dL (0.2-1.3); Total Protein 7.3 g/dL (6.3-8.2)
[2021-02-08 20:11] LABS: Amylase 1984 U/L (30-110)
[2021-02-08 20:50] LABS: Lipase 14072 U/L (23-300)
[2021-02-08 21:20] LABS: Appearance,Urine Clear (Clear); Bilirubin,Urine Negative (Negative); Blood,Urine Negative (Negative); Color,Urine Yellow; Glucose,Urine (UA) Negative (Negative); Ketones,Urine Negative (Negative); Leukocyte Esterase,Urine Negative (Negative); Nitrite,Urine Negative (Negative); Protein,Urine Negative (Negative); Specific Gravity,Urine 1.011 (1.001-1.035); Urobilinogen,Urine <2.0 mg/dL (<2.0)
[2021-02-08 22:50] VITALS: BP 154/94; PULSE 71
== END 2021-02-08 22:50 | disposition left against medical advice (07) ==
LOC: EC 18:35
DX: K85.90 Acute pancreatitis without necrosis or infection, unspecified (principal); E87.1 Hypo-osmolality and hyponatremia; I10 Essential (primary) hypertension; Z87.891 Personal history of nicotine dependence
CPT/HCPCS: 36415; 80053; 82150; 83605; 83690; 85025; 85610; 85730; 81003; 74018; 99284; 96374; 96375; 96361; J2405; J1885

== ENCOUNTER → 2021-02-20 | Outpatient (CLI) | payer MEDICARE ==
--- NOTE | 2021-02-20 12:26 | US ---
EXAMINATION TYPE: US abdomen complete DATE OF EXAM: 02/20/2021 COMPARISON: CT, US CLINICAL HISTORY: K86.1 chronic pancreatitis; Dilated pancreatic duct; takes meds for HTN. EXAM MEASUREMENTS: Liver Length: 12.0 cm Gallbladder Wall: 0.2 cm CBD: 0.3 cm Spleen: 8.9 cm Right Kidney: 10.5 x 6.9 x 5.3 cm Left Kidney: 9.8 x 4.5 x 5.0 cm Pancreas: dilated pancreatic duct is noted throughout (1.3cm largest A/P measure). Liver: no masses seen Gallbladder: wnl Evidence for sonographic Paige's sign: no CBD: wnl Spleen: wnl Right Kidney: No hydronephrosis or masses seen Left Kidney: upper cortical cyst seen = 1.6 x 1.5x 1.6cm Upper IVC: wnl Abd Aorta: size is wnl; intimal wall thickening is seen especially anteriorly, limited visualization due to overlying bowel gas; common iliac arteries are mildly prominent with intimal wall thickening n oted. IMPRESSION: 1. Chronic dilatation of the common bile duct. 2. Renal cortical cyst left kidney.
== END | disposition home or self-care (01) ==
LOC: RADUSWWP 07:41
PROVIDERS: ATTEND Internal Medicine
DX: K83.8 Other specified diseases of biliary tract (principal); N28.1 Cyst of kidney, acquired; I10 Essential (primary) hypertension
CPT/HCPCS: 76700

== ENCOUNTER → 2021-05-12 | Outpatient (CLI) | payer MEDICARE ==
--- NOTE | 2021-05-12 09:09 | US ---
EXAMINATION TYPE: US carotid duplex BILAT DATE OF EXAM: 05/12/2021 COMPARISON: 05/10/2015 CLINICAL HISTORY: I10 Hypertension, I69.351 Hemiplegia, E78.00. EXAM MEASUREMENTS: RIGHT: Peak Systolic Velocity (PSV) cm/sec ----- Right CCA: 80.9 ----- Right ICA: 85.0 ----- Right ECA: 79.8 ICA/CCA ratio: 1.1 RIGHT: End Diastole cm/sec ----- Right CCA: 17.1 ----- Right ICA: 26.7 ----- Right ECA: 7.3 LEFT: Peak Systolic Velocity (PSV) cm/sec ----- Left CCA: 68.5 ----- Left ICA: 74.9 ----- Left ECA: 89.5 ICA/CCA ratio: 1.1 LEFT: End Diastole cm/sec ----- Left CCA: 10.9 ----- Left ICA: 74.9 ----- Left ECA: 6.5 VERTEBRALS (direction of flow): Right Vertebral: Antegrade Left Vertebral: Antegrade Rhythm: Normal Mild to moderate plaque, no significant velocity elevations. IMPRESSION: No sonographic evidence for hemodynamically significant stenosis of either carotid arterial system. Criteria for Assigning % of Stenosis / Diameter reduction (Estimation based on the indirect measurements of the internal carotid artery velocities (ICA PSV). 1. Normal (no stenosis)=ICA PSV < 125 cm/s: ratio < 2.0: ICA EDV<40 cm/s. 2. Less than 50% stenosis=ICA PSV < 125 cm/s: ratio < 2.0: ICA EDV<40 cm/s. 3. 50 to 69% stenosis=ICA PSV of 125 to 230 cm/s: ration 2.0 ? 4.0: ICA EDV 40-100 cm/s. 4. Greater than 70% stenosis to near occlusion= ICA PSV > 230 cm/s: ratio > 4.0: ICA EDV > 100 cm/s. 5. Near occlusion= ICA PSV velocities may be low or undetectable: variable ratio and ICA EDV. 6. Total occlusion=unable to detect flow.
== END | disposition home or self-care (01) ==
LOC: RADUSWWP 08:19
PROVIDERS: ATTEND Internal Medicine
DX: I10 Essential (primary) hypertension (principal); G81.90 Hemiplegia, unspecified affecting unspecified side
CPT/HCPCS: 93880

== ENCOUNTER → 2021-05-20 | Outpatient (CLI) | payer MEDICARE ==
--- NOTE | 2021-05-20 12:01 | ECHOF ---
Referral Reason:I10 Hypertension, I69.351 Hemiplegia and ... MEASUREMENTS -------- HEIGHT: 167.6 cm WEIGHT: 74.8 kg BP: 149/87 RVIDd: 3.4 cm (< 3.3) IVSd: 1.4 cm (0.6 - 1.1) LVIDd: 3.9 cm (3.9 - 5.3) LVPWd: 1.4 cm (0.6 - 1.1) IVSs: 1.9 cm LVIDs: 2.6 cm LVPWs: 1.8 cm LA Diam: 3.1 cm (2.7 - 3.8) LAESV Index (A-L): 23.40 ml/m Ao Diam: 3.9 cm (2.0 - 3.7) AV Cusp: 2.8 cm (1.5 - 2.6) MV EXCURSION: 15.618 mm (> 18.000) MV EF SLOPE: 49 mm/s (70 - 150) EPSS: 0.5 cm MV E Kevin: 0.58 m/s MV DecT: 364 ms MV A Kevin: 1.05 m/s MV E/A Ratio: 0.55 AR PHT: 605 ms RAP: 5.00 mmHg RVSP: 25.96 mmHg FINDINGS -------- Sinus rhythm. This was a technically good study. The left ventricular size is normal. There is moderate concentric left ventricular hypertrophy. O verall left ventricular systolic function is normal with, an EF between 60 - 65 %. The right ventricle is mildly enlarged. Normal LA size by volume 22+/-6 ml/m2. The right atrium is normal in size. Interatrial and interventricular septum intact. There is mild aortic valve sclerosis. There is mild aortic regurgitation. The mitral valve leaflets are mildly thickened. Mild mitral annular calcification present. Mild m itral regurgitation is present. Mild tricuspid regurgitation present. Right ventricular systolic pressure is normal at < 35 mmHg. Trace/mild (physiologic) pulmonic regurgitation. The aortic root is dilated measuring 3.9cm. Normal inferior vena cava with normal inspiratory collapse consistent with estimated right atrial pre ssure of 5 mmHg. There is no pericardial effusion. CONCLUSIONS -------- 1. The left ventricular size is normal. 2. There is moderate concentric left ventricular hypertrophy. 3. Overall left ventricular systolic function is normal with, an EF between 60 - 65 %. 4. The right ventricle is mildly enlarged. 5. There is mild aortic valve sclerosis. 6. There is mild aortic regurgitation. 7. The mitral valve leaflets are mildly thickened. 8. Mild mitral annular calcification present. 9. Mild mitral regurgitation is present. 10. Mild tricuspid regurgitation present. 11. Trace/mild (physiologic) pulmonic regurgitation. 12. The aortic root is dilated measuring 3.9cm. 13. There is no pericardial effusion. MEDICAL STAFF MANAGER: Giana Correa RDCS
--- NOTE | 2021-05-20 12:15 | P.STRESS ---
- Stress Test Note Stress Test Results/Findings: Exam Performed: stress test Exam Date: 05/20/21 Reason for Exam: Hypertension Height: 5 ft 6 in Weight: 74.843 kg Protocol: Mike Stage: 4 Duration of Exercise: 11:30 Resting Heart Rate: 60 Resting Blood Pressure: 151/86 Maximum Achieved Heart Rate: 146 Maximum Achieved Blood Pressure: 211/94 85% PMHR: 122 100% PMHR: 143 METS: 12.1 Technologist Comment: Stress Test Results/Findings: Patient underwent exercise stress EKG with a Mike protocol treadmill stress test. Patient exercised into Stage 4 for a total of 11 minutes and 30 seconds reaching a total of 12.1 METS. Patient's maximum heart rate was 146 which represented 100 % age-predicted maximum heart rate. Stress EKG findings: At baseline patient's EKG showed normal sinus rhythm, normal axis, no significant ST or T-wave abnormalities. At peak exercise, EKG showed no significant change from baseline. Conclusions: 1. Normal EKG response to exercise without evidence of inducible ischemia. 2. Excellent exercise capacity.
== END | disposition home or self-care (01) ==
LOC: RADNMMAIN 08:31
PROVIDERS: ATTEND Internal Medicine
DX: I08.8 Other rheumatic multiple valve diseases (principal); I10 Essential (primary) hypertension
CPT/HCPCS: 93017; 93306

== ENCOUNTER 2025-04-05 03:11 | Emergency (ER) | payer MEDICARE ==
[2025-04-05 03:18] VITALS: RESP 18
--- NOTE | 2025-04-05 03:50 | ED ---
Allergic Reaction HPI - General Chief complaint: Allergic Reaction Stated complaint: Allergic reaction Time Seen by Provider: 04/05/25 03:21 Source: patient, RN notes reviewed, old records reviewed Mode of arrival: ambulatory Limitations: no limitations - History of Present Illness Initial Comments: This is an 80-year-old male to the ER for evaluation today. Patient presents today for poison pema reaction patient was given steroids for poison pema and they stopped 2 days ago and his reaction and rash is gotten significantly worse. No other complaints MD Complaint: allergic reaction, other (Bilateral edema) -: days(s) Symptoms: rash, itching Severity: moderate Treatment Prior to Arrival: none Previous Allergy History: none - Related Data Home Medications Medication Instructions Recorded Confirmed Cholecalciferol [Vitamin D3] 1,000 unit PO HS 06/28/18 06/28/18 Previous Rx's Medication Instructions Recorded Losartan [Cozaar] 50 mg PO DAILY #30 tab 06/29/18 traMADol HCl [Ultram] 50 mg PO Q4HR PRN 3 Days #18 tab 06/29/18 predniSONE [Deltasone] 20 mg PO DAILY #7 tab 04/05/25 predniSONE [Deltasone] 40 mg PO DAILY #7 tab 04/05/25 Allergies Allergy/AdvReac Type Severity Reaction Status Date / Time hydromorphone HCl Allergy Anaphylaxis Verified 04/05/25 03:14 [From Dilaudid] Review of Systems ROS Statement: Those systems with pertinent positive or pertinent negative responses have been documented in the HPI. ROS Other: All systems not noted in ROS Statement are negative. Past Medical History Past Medical History: CVA/TIA, Hypertension Additional Past Medical History / Comment(s): pancreatitis History of Any Multi-Drug Resistant Organisms: None Reported Past Surgical History: Hernia Repair Past Psychological History: No Psychological Hx Reported Smoking Status: Former smoker Past Alcohol Use History: None Reported Past Drug Use History: None Reported General Exam Limitations: no limitations General appearance: alert, in no apparent distress Head exam: Present: atraumatic, normocephalic, normal inspection Eye exam: Present: normal appearance, PERRL, EOMI. Absent: scleral icterus, conjunctival injection, periorbital swelling ENT exam: Present: normal exam, mucous membranes moist Neck exam: Present: normal inspection. Absent: tenderness, meningismus, lymphadenopathy Respiratory exam: Present: normal lung sounds bilaterally. Absent: respiratory distress, wheezes, rales, rhonchi, stridor Cardiovascular Exam: Present: regular rate, normal rhythm, normal heart sounds. Absent: systolic murmur, diastolic murmur, rubs, gallop, clicks GI/Abdominal exam: Present: soft, normal bowel sounds. Absent: distended, tenderness, guarding, rebound, rigid Extremities exam: Present: normal inspection, full ROM, normal capillary refill. Absent: tenderness, pedal edema, joint swelling, calf tenderness Back exam: Present: normal inspection Neurological exam: Present: alert, oriented X3, CN II-XII intact Psychiatric exam: Present: normal affect, normal mood Skin exam: Present: warm, dry, intact, normal color. Absent: rash Course Vital Signs 04/05/25 04/05/25 03:14 04:53 Temperature 97.5 F L 97.7 F Pulse Rate 68 74 Respiratory 18 18 Rate Blood Pressure 175/81 144/82 O2 Sat by Pulse 98 99 Oximetry - Reevaluation(s) Reevaluation #1: Medical records reviewed Reevaluation #2: Patient's symptoms improved here in the ER Reevaluation #3: Patient informed of results questions answered Reevaluation #4: Was pt. sent in by a medical professional or institution (, PA, [employer], urgent care, hospital, or prison...) When possible be specific @ -no Did you speak to anyone other than the patient for history (EMS, parent, family, police, friend...)? What history was obtained from this source @ -no Did you review nursing and triage notes (agree or disagree)? Why? @ -agree Are old charts reviewed (outside hosp., previous admission, EMS record, old EKG, old radiological studies, urgent care reports/EKG's, prison records)? Report findings @ -yes Differential Diagnosis (chest pain, altered mental status, abdominal pain women, abdominal pain men, vaginal bleeding, weakness, fever, dyspnea, syncope, headache, dizziness, GI bleed, back pain, seizure, CVA, palpatations, mental health, musculoskeletal)? @ -prior EKG interpreted by me (3pts min.). @ -no X-rays interpreted by me (1pt min.). @ -no CT interpreted by me (1pt min.). @ -no U/S interpreted by me (1pt. min.). @ -no What testing was considered but not performed or refused? (CT, X-rays, U/S, labs)? Why? @ -none What meds were considered but not given or refused? Why? @ -none Did you discuss the management of the patient with other professionals (professionals i.e. , PA, [employer], lab, RT, psych nurse, oncology social worker, customer service consultant, teacher, chief technology officer, showcase trimmer)? Give summary @ -no Was smoking cessation discussed for >3mins.? @ -no Was critical care preformed (if so, how long)? @ -no Were there social determinants of health that impacted care today? How? (Homelessness, low income, unemployed, alcoholism, drug addiction, transporta tion, low edu. Level, literacy, decrease access to med. care, [facility], rehab)? @ -none Was there de-escalation of care discussed even if they declined (Discuss DNR or withdrawal of care, Hospice)? DNR status @ -no What co-morbidities impacted this encounter? (DM, HTN, Smoking, COPD, CAD, Cancer, CVA, ARF, Chemo, Hep., AIDS, mental health diagnosis, sleep apnea, morbid obesity)? @ -none Was patient admitted / discharged? Hospital course, mention meds given and route, prescriptions, significant lab abnormalities, going to OR and other pertinent info. @ - 79-year-old male to the ER for evaluation of poison pema rash. Rash is improved throughout ER stay and patient will go back on steroids for greater than 2 more weeks Discharge Undiagnosed new problem with uncertain prognosis? @ -no Drug Therapy requiring intensive monitoring for toxicity (Heparin, Nitro, Insulin, Cardizem)? @ -no Were any procedures done? @ -no Diagnosis/symptom? @ -Poison pema reaction, Ursiol Reaction Acute, or Chronic, or Acute on Chronic? @ -Acute Uncomplicated (without systemic symptoms) or Complicated (systemic symptoms)? @ -Complicated Side effects of treatment? @ -no Exacerbation, Progression, or Severe Exacerbation? @ -exacerbation Poses a threat to life or bodily function? How? (Chest pain, [place], [place], pneumonia, PE, COPD, DKA, ARF, appy, cholecystitis, CVA, Diverticulitis, Homicidal, Suicidal, threat to staff... and all critical care pts) @ -no Medical Decision Making - Medical Decision Making 79-year-old male to the ER for evaluation of poison pema rash. Rash is improved throughout ER stay and patient will go back on steroids for greater than 2 more weeks Disposition Clinical Impression: Allergic reaction, Contact dermatitis, Poison pema Disposition: HOME SELF-CARE Condition: Good Instructions (If sedation given, give patient instructions): Poison Pema (ED) Additional Instructions: Today you received Pepcid, Atarax, Benadryl, Decadron, Prednisone, and Triamcinolone cream. Please take the Prednisone prescription as prescribes. Follow up with primary care in 1-2 days. If you develop new or worsening symptoms, please return to the ER. Prescriptions: predniSONE [Deltasone] 40 mg PO DAILY #7 tab predniSONE [Deltasone] 20 mg PO DAILY #7 tab Is patient prescribed a controlled substance at d/c from ED?: No Referrals: Carito Jordan MD [Primary Care Provider] - 1-2 days Time of Disposition: 04:00
[2025-04-05] MEDS: FAMOTIDINE 20 MG TAB PO STA (04:34)
[2025-04-05] MEDS: diphenhydrAMINE 50 MG CAP PO STA (04:34)
[2025-04-05] MEDS: hydrOXYzine HCL 25 MG TAB PO ONE (04:35)
[2025-04-05] MEDS: TRIAMCINOLONE 0.1% CREAM 80 GM TUBE TOPICAL ONE (04:36)
[2025-04-05] MEDS: DEXAMETHASONE SOD PHOSPHATE 10 MG/ML 1 ML VIAL IM STA (04:36)
[2025-04-05] MEDS: predniSONE 20 MG TAB PO STA (04:41)
[2025-04-05 04:54] VITALS: BP 144/82; PULSE 74; TEMP 97.7
== END 2025-04-05 04:57 | disposition home or self-care (01) ==
LOC: EC 03:11
DX: L23.7 Allergic contact dermatitis due to plants, except food (principal); Z86.73 Personal history of transient ischemic attack (TIA), and cerebral infarction without residual deficits; Z87.891 Personal history of nicotine dependence; Z88.5 Allergy status to narcotic agent
CPT/HCPCS: 99283; 96372; J1100; J7512

== ENCOUNTER 2025-05-19 15:09 | Emergency (ER) | payer MEDICARE ==
[2025-05-19 15:13] VITALS: RESP 18; TEMP 97.8
[2025-05-19] MEDS: SODIUM CHLORIDE 0.9% 500 ML 500 ML IV STA (15:39)
[2025-05-19] MEDS: ONDANSETRON 4 MG/2 ML VIAL IVP STA (15:39)
--- NOTE | 2025-05-19 15:51 | ED ---
Nausea/Vomiting/Diarrhea HPI - General Chief complaint: Nausea/Vomiting/Diarrhea Stated complaint: Vomiting/Weakness Time Seen by Provider: 05/19/25 15:18 Source: patient Mode of arrival: wheelchair Limitations: no limitations - History of Present Illness Initial comments: This patient is an 80-year-old man with history of previous pancreatitis who presents to have evaluation of nausea vomiting and diarrhea. He states that the symptoms started Wednesday after he had been working in his garden. He states that for about 2 hours he had pretty frequent episodes of vomiting and diarrhea. He did not have any fever or chills. No abdominal pain. Patient states that he was then doing a little better though he has continued to have some vomiting and diarrhea each day. He had 2 episodes of vomiting today and then decided he should be seen in the emergency department. The patient has not had hematemesis or coffee-ground material. No bloody or tarry stools. He has not noted change in urination. MD complaint: nausea, vomiting, diarrhea Onset/Timin -: days(s) Description of Vomiting: food contents Description of Diarrhea: water Associated Abdominal Pain: No Severity scale (1-10): 0 Consistency: intermittent Improves with: none Worsens with: none Associated Symptoms: nausea/vomiting - Related Data Home Medications Medication Instructions Recorded Confirmed Cholecalciferol [Vitamin D3] 1,000 unit PO HS 06/28/18 06/28/18 Previous Rx's Medication Instructions Recorded Losartan [Cozaar] 50 mg PO DAILY #30 tab 06/29/18 traMADol HCl [Ultram] 50 mg PO Q4HR PRN 3 Days #18 tab 06/29/18 predniSONE [Deltasone] 20 mg PO DAILY #7 tab 04/05/25 predniSONE [Deltasone] 40 mg PO DAILY #7 tab 04/05/25 Ondansetron Odt [Zofran ODT] 4 mg PO Q8HR PRN #10 tab 05/19/25 Allergies Allergy/AdvReac Type Severity Reaction Status Date / Time hydromorphone HCl Allergy Anaphylaxis Verified 05/27/25 12:06 [From Dilaudid] Review of Systems ROS Statement: Those systems with pertinent positive or pertinent negative responses have been documented in the HPI. ROS Other: All systems not noted in ROS Statement are negative. Constitutional: Denies: fever, chills Respiratory: Denies: cough, dyspnea Cardiovascular: Denies: chest pain, palpitations, edema Gastrointestinal: Reports: nausea, vomiting, diarrhea. Denies: abdominal pain, constipation, hematemesis, melena, hematochezia Genitourinary: Denies: dysuria, hematuria, testicular pain Musculoskeletal: Denies: back pain Skin: Denies: rash Neurological: Denies: headache, weakness, numbness Past Medical History Past Medical History: CVA/TIA, Hypertension Additional Past Medical History / Comment(s): pancreatitis History of Any Multi-Drug Resistant Organisms: None Reported Past Surgical History: Hernia Repair Past Psychological History: No Psychological Hx Reported Smoking Status: Former smoker Past Alcohol Use History: None Reported Past Drug Use History: None Reported General Exam Limitations: no limitations General appearance: alert, in no apparent distress Head exam: Present: atraumatic, normocephalic Eye exam: Present: normal appearance. Absent: scleral icterus, conjunctival injection ENT exam: Present: normal oropharynx Neck exam: Present: normal inspection Respiratory exam: Present: normal lung sounds bilaterally. Absent: respiratory distress, wheezes, rales, rhonchi, stridor, accessory muscle use Cardiovascular Exam: Present: regular rate, normal rhythm, normal heart sounds. Absent: systolic murmur, diastolic murmur, rubs, gallop GI/Abdominal exam: Present: soft. Absent: distended, tenderness, guarding, rebound, rigid, mass, pulsatile mass, hernia Extremities exam: Present: normal inspection, normal capillary refill. Absent: pedal edema, calf tenderness Back exam: Present: normal inspection. Absent: CVA tenderness (R), CVA tenderness (L) Neurological exam: Present: alert Skin exam: Present: warm, dry, intact, normal color. Absent: rash Course Vital Signs 05/19/25 05/19/25 15:11 18:53 Temperature 97.8 F Pulse Rate 87 82 Respiratory 18 18 Rate Blood Pressure 146/79 145/81 O2 Sat by Pulse 95 97 Oximetry Medical Decision Making - Medical Decision Making Was pt. sent in by a medical professional or institution (, PA, [employer], urgent care, hospital, or penitentiary...) When possible be specific @ -[No] Did you speak to anyone other than the patient for history (EMS, parent, family, police, friend...)? What history was obtained from this source @ -[No] Did you review nursing and triage notes (agree or disagree)? Why? @ -[I reviewed and agree with nursing and triage notes] Were old charts reviewed (outside hosp., previous admission, EMS record, old EKG, old radiological studies, urgent care reports/EKG's, penitentiary records)? Report findings @ -[No old charts were reviewed] Differential Diagnosis (chest pain, altered mental status, abdominal pain women, abdominal pain men, vaginal bleeding, weakness, fever, dyspnea, syncope, headache, dizziness, GI bleed, back pain, seizure, CVA, palpatations, mental health, musculoskeletal)? @ -[Differential vomiting: Appendicitis, cholecystitis, diverticulosis, ischemic bowel, pancreatitis, hepatitis, UTI, gastroenteritis, AAA, incarcerated hernia, bowel obstruction, constipation, inflammatory bowel, hepatitis, peptic ulcer disease, splenic infarction, perforated viscus, testicular torsion, this is not meant to be an all-inclusive list EKG interpreted by me (3pts min.). @ -[As above] X-rays interpreted by me (1pt min.). @ -[None done] CT interpreted by me (1pt min.). @ -[None done] U/S interpreted by me (1pt. min.). @ -[None done] What testing was considered but not performed or refused? (CT, X-rays, U/S, labs)? Why? @ -[None] What meds were considered but not given or refused? Why? @ -[None] Did you discuss the management of the patient with other professionals (professionals i.e. , PA, [employer], lab, RT, psych nurse, sexual assault social worker, associate professor of engineering, teacher, media liaison officer, case monitor)? Give summary @ -[No] Was smoking cessation discussed for >3mins.? @ -[No] Was critical care preformed (if so, how long)? @ -[No] Were there social determinants of health that impacted care today? How? (Homelessness, low income, unemployed, alcoholism, drug addiction, transportation, low edu. Level, literacy, decrease access to med. care, senior living, rehab)? @ -[No] Was there de-escalation of care discussed even if they declined (Discuss DNR or withdrawal of care, Hospice)? DNR status @ -[No] What co-morbidities impacted this encounter? (DM, HTN, Smoking, COPD, CAD, Cancer, CVA, ARF, Chemo, Hep., AIDS, mental health diagnosis, sleep apnea, morbid obesity)? @ -[None] Was patient admitted / discharged? Hospital course, mention meds given and route, prescriptions, significant lab abnormalities, going to OR and other pertinent info. @ -[Patient is an 80-year-old man here for multiple episodes of nausea and vomiting over days. The patient's physical exam notable for mild dehydration. The workup is unremarkable. The patient is feeling better following fluids and medication and at this point stable for discharge with close follow-up. Undiagnosed new problem with uncertain prognosis? @ -[No] Drug Therapy requiring intensive monitoring for toxicity (Heparin, Nitro, Insulin, Cardizem)? @ -[No] Were any procedures done? @ -[No] Diagnosis/symptom? @ -[Acute nausea and vomiting Acute, or Chronic, or Acute on Chronic? @ -[Acute Uncomplicated (without systemic symptoms) or Complicated (systemic symptoms)? @ -[Uncomplicated Side effects of treatment? @ -[No] Exacerbation, Progression, or Severe Exacerbation? @ -[No] Poses a threat to life or bodily function? How? (Chest pain, [place], [place], pneumonia, PE, COPD, DKA, ARF, appy, cholecystitis, CVA, Diverticulitis, Homicidal, Suicidal, threat to staff... and all critical care pts) @ -[No] All treatments are based on ideal body weight as in ED triage - Lab Data Result diagrams: 05/19/25 15:38 05/19/25 15:38 Lab Results 05/19/25 05/19/25 Range/Units 15:38 15:38 WBC 12.64 H (4.50-10.00) 10*3/uL RBC 4.86 (4.40-5.60) 10*6/uL Hgb 15.6 (13.0-17.0) g/dL Hct 45.1 (39.6-50.0) % MCV 92.8 (80.0-97.0) fL MCH 32.1 H (27.0-32.0) pg MCHC 34.6 (32.0-37.0) g/dL Plt Count 257 (140-440) 10*3/uL MPV 10.0 (9.5-12.2) fL Immature Gran % (Auto) 0.6 % Neutrophils % 82.5 % Lymphocytes % 6.6 % Monocytes % 9.0 % Eosinophils % 1.1 % Basophils % 0.2 % Immature Gran # 0.07 H (0.00-0.04) 10*3/uL Neutrophils # 10.42 H (1.80-7.70) 10*3/uL Lymphocytes # 0.84 L (0.90-5.00) 10*3/uL Monocytes # 1.14 H (0.20-1.00) 10*3/uL Eosinophils # 0.14 (0.04-0.35) 10*3/uL Basophils # 0.03 (0.00-0.10) 10*3/uL Sodium 135 L (137-145) mmol/L Potassium 5.0 (3.5-5.1) mmol/L Chloride 95 L (98-107) mmol/L Carbon Dioxide 26 (22-30) mmol/L Anion Gap 14 mmol/L BUN 22 H (9-20) mg/dL Creatinine 0.83 (0.66-1.25) mg/dL Est GFR (CKD-EPI)AfAm >90 (>60 ml/min/1.73 sqM) Est GFR (CKD-EPI)NonAf 83 (>60 ml/min/1.73 sqM) Glucose 92 (74-99) mg/dL Calcium 9.8 (8.4-10.2) mg/dL Total Bilirubin 1.3 (0.2-1.3) mg/dL AST 42 (17-59) U/L ALT 37 (4-49) U/L Alkaline Phosphatase 94 (38-126) U/L Total Protein 7.6 (6.3-8.2) g/dL Albumin 4.5 (3.5-5.0) g/dL Amylase 57 (30-110) U/L Lipase 60 (23-300) U/L Disposition Clinical Impression: Nausea & vomiting Disposition: HOME SELF-CARE Condition: Good Instructions (If sedation given, give patient instructions): Acute Nausea and Vomiting (ED) Prescriptions: Ondansetron Odt [Zofran ODT] 4 mg PO Q8HR PRN #10 tab PRN Reason: Nausea Is patient prescribed a controlled substance at d/c from ED?: No Referrals: Carito Jordan MD [Primary Care Provider] - 1-2 days
[2025-05-19 15:56] LABS: Basophils # (A) 0.03 10*3/uL (0.00-0.10); Basophils % (A) 0.2 %; Eosinophils # (A) 0.14 10*3/uL (0.04-0.35); Eosinophils % (A) 1.1 %; HCT 45.1 % (39.6-50.0); HGB 15.6 g/dL (13.0-17.0); Lymphocytes # (A) 0.84 10*3/uL (0.90-5.00); Lymphocytes % (A) 6.6 %; MCH 32.1 pg (27.0-32.0); MCHC 34.6 g/dL (32.0-37.0); MCV 92.8 fL (80.0-97.0); Monocytes # (A) 1.14 10*3/uL (0.20-1.00); Neutrophils # (A) 10.42 10*3/uL (1.80-7.70); Neutrophils % (A) 82.5 %; Platelet Count 257 10*3/uL (140-440); RBC 4.86 10*6/uL (4.40-5.60); RDW 12.6 % (11.5-14.5); WBC 12.64 10*3/uL (4.50-10.00)
[2025-05-19 16:09] LABS: ALT 37 U/L (4-49); AST 42 U/L (17-59); African American GFR (CKD) >90 (>60 ml/min/1.73 sqM); Albumin 4.5 g/dL (3.5-5.0); Alkaline Phosphatase 94 U/L (38-126); Amylase 57 U/L (30-110); Anion Gap 14 mmol/L; Blood Urea Nitrogen 22 mg/dL (9-20); Calcium 9.8 mg/dL (8.4-10.2); Carbon Dioxide 26 mmol/L (22-30); Chloride 95 mmol/L (98-107); Glucose 92 mg/dL (74-99); Lipase 60 U/L (23-300); Non-African American GFR(CKD) 83 (>60 ml/min/1.73 sqM); Sodium 135 mmol/L (137-145); Total Bilirubin 1.3 mg/dL (0.2-1.3); Total Protein 7.6 g/dL (6.3-8.2)
[2025-05-19 18:55] VITALS: BP 145/81; PULSE 82
== END 2025-05-19 18:55 | disposition home or self-care (01) ==
LOC: EC 15:09
DX: R11.2 Nausea with vomiting, unspecified (principal); Z87.891 Personal history of nicotine dependence; Z88.5 Allergy status to narcotic agent
CPT/HCPCS: 99284; 36415; 80053; 82150; 83690; 85025; 96374; 96361; J2405

== ENCOUNTER 2025-05-27 11:55 | Emergency (ER) | payer MEDICARE ==
[2025-05-27 12:06] VITALS: RESP 17
--- NOTE | 2025-05-27 13:16 | ED ---
General Adult HPI - General Source: patient, EMS, RN notes reviewed, old records reviewed Mode of arrival: EMS Limitations: no limitations <Kellie Wright - Last Filed: 05/27/25 17:54> <Manish Siu - Last Filed: 05/27/25 18:31> - General Chief complaint: Weakness Stated complaint: Heat Exhaustion Time Seen by Provider: 05/27/25 12:04 - History of Present Illness Initial comments: 80-year-old male with a past medical history of pancreatitis presenting with complaints of nausea vomiting and general weakness. States he was in his garden a couple hours ago tending to his vegetable patch when he started to feel very warm and nauseous and then began to vomit. Of note patient was here recently with similar symptoms of nausea and vomiting, at this time his family thought of the best for him to get seen in the ER for further evaluation. En route to the ER in the ambulance patient received half a liter as well as Zofran. Upon arrival to the ER patient states he is feeling better than when he left his lisa ce after receiving medication and fluids. States since being in the ER he has had 1 episode of diarrhea, denies any blood in the stool describes it mostly as watery. Patient denies abdominal tenderness, headache, chest pain, shortness of breath, and palpitations. (Kellie Wright) - Related Data Home Medications Medication Instructions Recorded Confirmed Cholecalciferol [Vitamin D3] 1,000 unit PO HS 06/28/18 06/28/18 Previous Rx's Medication Instructions Recorded Losartan [Cozaar] 50 mg PO DAILY #30 tab 06/29/18 traMADol HCl [Ultram] 50 mg PO Q4HR PRN 3 Days #18 tab 06/29/18 predniSONE [Deltasone] 20 mg PO DAILY #7 tab 04/05/25 predniSONE [Deltasone] 40 mg PO DAILY #7 tab 04/05/25 Ondansetron Odt [Zofran ODT] 4 mg PO Q8HR PRN #10 tab 05/19/25 Allergies Allergy/AdvReac Type Severity Reaction Status Date / Time hydromorphone HCl Allergy Anaphylaxis Verified 05/27/25 12:06 [From Dilaudid] Review of Systems ROS Other: All systems not noted in ROS Statement are negative. <Kellie Wright - Last Filed: 05/27/25 17:54> ROS Other: All systems not noted in ROS Statement are negative. <Manish Siu - Last Filed: 05/27/25 18:31> ROS Statement: Those systems with pertinent positive or pertinent negative responses have been documented in the HPI. Past Medical History Past Medical History: CVA/TIA, Hypertension Additional Past Medical History / Comment(s): pancreatitis History of Any Multi-Drug Resistant Organisms: None Reported Past Surgical History: Hernia Repair Past Psychological History: No Psychological Hx Reported Smoking Status: Former smoker Past Alcohol Use History: None Reported Past Drug Use History: None Reported <Kellie Wright - Last Filed: 05/27/25 17:54> General Exam Limitations: no limitations <Kellie Wright - Last Filed: 05/27/25 17:54> - General Exam Comments Initial Comments: GENERAL: In no apparent distress at the time of examination. Pleasant and c ooperative. HEENT: Head is atraumatic, normocephalic. Pupils are equal, round, and reactive to light. Sclerae anicteric. Conjunctivae are clear. Mucus membranes of the mouth are moist. Neck is supple. RESPIRATORY: Clear to auscultation. No wheezes, rales, or rhonchi. No use of accessory muscles. Patient maintaining oxygen saturation greater than 92%. No chest wall tenderness is noted on palpation or with deep breathing. CARDIOVASCULAR: Regular rate and rhythm. S1 and S2 noted. No systolic or diastolic murmur auscultated. No JVD noted. No S3 or S4 noted. GASTROINTESTINAL: Very mild distention noted. Abdomen soft and round. Normal active bowel sounds auscultated x 4 quadrants. No pain or tenderness noted upon palpation. INTEGUMENTARY: No cyanosis. No jaundice. No rashes noted. No cellulitis noted. EXTREMITIES: 2+ peripheral pulses. No evidence of peripheral edema. No calf tenderness noted. PSYCHIATRIC: Awake, alert, and oriented X 3. Appropriate affect. Intact judgement and insight. (Kellie Wright) Course Vital Signs 05/27/25 05/27/25 05/27/25 12:03 14:39 18:13 Temperature 98.2 F 97.9 F 98.1 F Pulse Rate 87 74 Respiratory 17 17 Rate Blood Pressure 131/79 139/74 O2 Sat by Pulse 95 98 Oximetry Medical Decision Making - Lab Data Result diagrams: 05/27/25 13:08 05/27/25 13:08 <AdrianaKellie - Last Filed: 05/27/25 17:54> - Lab Data Result diagrams: 05/27/25 13:08 05/27/25 13:08 <Manish Siu - Last Filed: 05/27/25 18:31> - Medical Decision Making Was pt. sent in by a medical professional or institution (JUAN LUIS Bass, BUSINESS LIBRARIAN, urgent care, hospital, or assisted...) When possible be specific @ -No Did you speak to anyone other than the patient for history (EMS, parent, family, police, friend...)? What history was obtained from this source @ -Yes, family Did you review nursing and triage notes (agree or disagree)? Why? @ -I reviewed and agree with nursing and triage notes Were old charts reviewed (outside hosp., previous admission, EMS record, old EKG, old radiological studies, urgent care reports/EKG's, assisted records)? Report findings @ -No old charts were reviewed Differential Diagnosis? @ -Heatstroke, gastroenteritis, hypoglycemia, shock, sepsis, hyponatremia, anemia, infection, SC, ETOH, adverse medicine reaction, overdose, stroke, this is not meant to be an all-inclusive list. EKG interpreted by me (3pts min.). @ -Interpreted by me, normal sinus rhythm, no ST elevation or T wave inversion appreciated. X-rays interpreted by me (1pt min.). @ -None done CT interpreted by me (1pt min.). @ -None done U/S interpreted by me (1pt. min.). @ -None done What testing was considered but not performed or refused? (CT, X-rays, U/S, labs)? Why? @ -None What meds were considered but not given or refused? Why? @ -None Did you discuss the management of the patient with other professionals (professionals i.e. JUAN LUIS Bass, BUSINESS LIBRARIAN, lab, RT, psych nurse, drug abuse social worker, black belt, teacher, commissioned police officer, case mgr)? Give summary @ -No Was smoking cessation discussed for >3mins.? @ -No Was critical care preformed (if so, how long)? @ -No Were there social determinants of health that impacted care today? How? (Homelessness, low income, unemployed, alcoholism, drug addiction, transportation, low edu. Level, literacy, decrease access to med. care, senior care, rehab)? @ -No Was there de-escalation of care discussed even if they declined (Discuss DNR or withdrawal of care, Hospice)? DNR status @ -No What co-morbidities impacted this encounter? (DM, HTN, Smoking, COPD, CAD, Cancer, CVA, ARF, Chemo, Hep., AIDS, mental health diagnosis, sleep apnea, morbid obesity)? @ -None Was patient admitted / discharged? Hospital course, mention meds given and route, prescriptions, significant lab abnormalities, going to OR and other pertinent info. @ -, This is an 80-year-old male presenting with complaints of nausea vomiting and weakness. Patient was out in his garden tending to his vegetable patch when he started to feel weak and nauseous and then proceeded to vomit. Patient has similar symptoms to this recently requiring ER visit, so family decided that he should come to the ER for further evaluation. In reality EMS gave half a liter normal saline and Zofran and by the time the patient arrived his symptoms had already started to improve. Patient denied abdominal pain throughout his whole stay here. Underwent CBC and CMP as well as amylase lipase. CBC showed an elevated white count of 28,000 and the CMP and amylase and lipase were within normal limits. The patient also had 1 episode of diarrhea while being here. We then did a stool culture as well as a C. difficile EIA. C. difficile came back negative, patient's symptoms had resolved while being here, continued to deny abdominal pain so patient was discharged at that time. Patient is advised to follow-up with his PCP in 1 to 2 days. Undiagnosed new problem with uncertain prognosis? @ -No Drug Therapy requiring intensive monitoring for toxicity (Heparin, Nitro, Insulin, Cardizem)? @ -No Were any procedures done? @ -No Diagnosis/symptom? @ -Heat exhaustion Acute, or Chronic, or Acute on Chronic? @ -Acute Uncomplicated (without systemic symptoms) or Complicated (systemic symptoms)? @ -Default Side effects of treatment? @ -No Exacerbation, Progression, or Severe Exacerbation? @ -No Poses a threat to life or bodily function? How? (Chest pain, USA, SC, pneumonia, PE, COPD, DKA, ARF, appy, cholecystitis, CVA, Diverticulitis, Homicidal, Suicidal, threat to staff... and all critical care pts) @ -No (Kellie Wright) I personally saw the patient and performed the critical portion of the service. I discussed the patient care with the resident, Dr. Wright. I directed management, care planning and final disposition of the patient. This includes, but not limited to, review of all lab work, radiological studies, EKG's, consultations, vital signs, and nursing notes. EKG interpreted by me (3pts min.) @1206-normal sinus rhythm, ventricular rate of 84 bpm, no ectopy, normal LA and QRS intervals, normal QT interval, normal axis, no ST or T wave abnormality, inferior Q waves X-Rays interpreted by me (1 pt min.) @None CT interpreted by me ( 1pt min.) @None U/S interpreted by me (1 pt min.) @None . (Manish Siu) - Lab Data Lab Results 05/27/25 05/27/25 05/27/25 Range/Units 13:08 13:08 13:08 WBC 28.61 H (4.50-10.00) 10*3/uL RBC 5.04 (4.40-5.60) 10*6/uL Hgb 16.1 (13.0-17.0) g/dL Hct 47.3 (39.6-50.0) % MCV 93.8 (80.0-97.0) fL MCH 31.9 (27.0-32.0) pg MCHC 34.0 (32.0-37.0) g/dL Plt Count 286 (140-440) 10*3/uL MPV 11.3 (9.5-12.2) fL Immature Gran % (Auto) 0.9 % Neutrophils % (Manual) 86 % Band Neuts % (Manual) 4 % Lymphocytes % (Manual) 5 % Monocytes % (Manual) 3 % Eosinophils % (Manual) 2 % Immature Gran # 0.25 H (0.00-0.04) 10*3/uL Neutrophils # (Manual) 25.74 H (1.3-7.7) k/uL Lymphocytes # (Manual) 1.43 (1.0-4.8) k/uL Monocytes # (Manual) 0.86 (0-1.0) k/uL Eosinophils # (Manual) 0.57 (0-0.7) k/uL Nucleated RBCs 0 (0-0) /100 WBC Manual Slide Review Performed RBC Morphology Normal Sodium 138 (137-145) mmol/L Potassium 4.8 (3.5-5.1) mmol/L Chloride 100 (98-107) mmol/L Carbon Dioxide 21 L (22-30) mmol/L Anion Gap 17 mmol/L BUN 11 (9-20) mg/dL Creatinine 0.89 (0.66-1.25) mg/dL Est GFR (CKD-EPI)AfAm >90 (>60 ml/min/1.73 sqM) Est GFR (CKD-EPI)NonAf 80 (>60 ml/min/1.73 sqM) Glucose 90 (74-99) mg/dL Calcium 9.9 (8.4-10.2) mg/dL Total Bilirubin 0.8 (0.2-1.3) mg/dL AST 46 (17-59) U/L ALT 31 (4-49) U/L Alkaline Phosphatase 103 (38-126) U/L Troponin I <0.012 (0.000-0.034) ng/mL Total Protein 8.0 (6.3-8.2) g/dL Albumin 4.7 (3.5-5.0) g/dL Amylase 70 (30-110) U/L Lipase 64 (23-300) U/L C. difficile (EIA) Intrp (Negative) 05/27/25 Range/Units 15:30 WBC (4.50-10.00) 10*3/uL RBC (4.40-5.60) 10*6/uL Hgb (13.0-17.0) g/dL Hct (39.6-50.0) % MCV (80.0-97.0) fL MCH (27.0-32.0) pg MCHC (32.0-37.0) g/dL Plt Count (140-440) 10*3/uL MPV (9.5-12.2) fL Immature Gran % (Auto) % Neutrophils % (Manual) % Band Neuts % (Manual) % Lymphocytes % (Manual) % Monocytes % (Manual) % Eosinophils % (Manual) % Immature Gran # (0.00-0.04) 10*3/uL Neutrophils # (Manual) (1.3-7.7) k/uL Lymphocytes # (Manual) (1.0-4.8) k/uL Monocytes # (Manual) (0-1.0) k/uL Eosinophils # (Manual) (0-0.7) k/uL Nucleated RBCs (0-0) /100 WBC Manual Slide Review RBC Morphology Sodium (137-145) mmol/L Potassium (3.5-5.1) mmol/L Chloride (98-107) mmol/L Carbon Dioxide (22-30) mmol/L Anion Gap mmol/L BUN (9-20) mg/dL Creatinine (0.66-1.25) mg/dL Est GFR (CKD-EPI)AfAm (>60 ml/min/1.73 sqM) Est GFR (CKD-EPI)NonAf (>60 ml/min/1.73 sqM) Glucose (74-99) mg/dL Calcium (8.4-10.2) mg/dL Total Bilirubin (0.2-1.3) mg/dL AST (17-59) U/L ALT (4-49) U/L Alkaline Phosphatase (38-126) U/L Troponin I (0.000-0.034) ng/mL Total Protein (6.3-8.2) g/dL Albumin (3.5-5.0) g/dL Amylase (30-110) U/L Lipase (23-300) U/L C. difficile (EIA) Intrp Negative (Negative) Disposition Is patient prescribed a controlled substance at d/c from ED?: No <Kellie Wright - Last Filed: 05/27/25 17:54> <Manish Siu - Last Filed: 05/27/25 18:31> Clinical Impression: Heat exhaustion Disposition: HOME SELF-CARE Condition: Fair Instructions (If sedation given, give patient instructions): Heat Exhaustion (ED) Referrals: Carito Jordan MD [Primary Care Provider] - 1-2 days
[2025-05-27] MEDS: SODIUM CHLORIDE 0.9% 1,000 ML IV ONE (13:27)
[2025-05-27 13:37] LABS: HCT 47.3 % (39.6-50.0); HGB 16.1 g/dL (13.0-17.0); MCH 31.9 pg (27.0-32.0); MCV 93.8 fL (80.0-97.0); Mean Platelet Volume 11.3 fL (9.5-12.2); Platelet Count 286 10*3/uL (140-440); RBC 5.04 10*6/uL (4.40-5.60); RDW 12.6 % (11.5-14.5); WBC 28.61 10*3/uL (4.50-10.00)
[2025-05-27 13:52] LABS: ALT 31 U/L (4-49); African American GFR (CKD) >90 (>60 ml/min/1.73 sqM); Albumin 4.7 g/dL (3.5-5.0); Amylase 70 U/L (30-110); Anion Gap 17 mmol/L; Blood Urea Nitrogen 11 mg/dL (9-20); Calcium 9.9 mg/dL (8.4-10.2); Carbon Dioxide 21 mmol/L (22-30); Chloride 100 mmol/L (98-107); Glucose 90 mg/dL (74-99); Lipase 64 U/L (23-300); Non-African American GFR(CKD) 80 (>60 ml/min/1.73 sqM); Sodium 138 mmol/L (137-145); Total Bilirubin 0.8 mg/dL (0.2-1.3)
[2025-05-27 14:00] LABS: AST 46 U/L (17-59); Alkaline Phosphatase 103 U/L (38-126); Potassium 4.8 mmol/L (3.5-5.1)
[2025-05-27 14:08] LABS: Band Neutrophils % 4 %; Eosinophils # (M) 0.57 k/uL (0-0.7); Lymphocytes # (M) 1.43 k/uL (1.0-4.8); Monocytes # (M) 0.86 k/uL (0-1.0); Neutrophils # (M) 25.74 k/uL (1.3-7.7); Neutrophils % (M) 86 %; Nucleated Red Blood Cells 0 /100 WBC (0-0); Total Cells Counted 100
[2025-05-27 14:09] LABS: RBC Morphology Normal
[2025-05-27 18:15] VITALS: BP 139/74; PULSE 74; TEMP 98.1
== END 2025-05-27 18:16 | disposition home or self-care (01) ==
LOC: EC 11:55
DX: Z86.73 Personal history of transient ischemic attack (TIA), and cerebral infarction without residual deficits (principal); R53.83 Other fatigue; Z87.891 Personal history of nicotine dependence; Z88.5 Allergy status to narcotic agent
CPT/HCPCS: 36415; 80053; 82150; 83690; 84484; 85025; 87045; 87046; 87324; 93005; 96360; 96361; 96374; 96375; 99284; 99285

== ENCOUNTER → 2025-05-31 | Outpatient (CLI) | payer MEDICARE ==
--- NOTE | 2025-05-31 14:23 | US ---
EXAMINATION TYPE: US abdomen complete DATE OF EXAM: 05/31/2025 COMPARISON: US 02/20/2021, CT abdomen and pelvis 06/28/2013 CLINICAL INDICATION: Male, 80 years old with history of R11.10 VOMITING UNSPECIFIED; Vomiting x2 week s TECHNIQUE: Grayscale and color Doppler imaging of the abdomen was performed. FINDINGS: EXAM MEASUREMENTS: Liver Length: 13.4 cm Gallbladder Wall: 0.2 cm CBD: 0.4 cm, color Doppler imaging was utilized to isolate the common bile duct for measurement. Spleen: 9.3 cm Right Kidney: 10.3 x 5.4 x 4.9 cm Left Kidney: 10.5 x 5.5 x 5.5 cm MONORAIL HELPER NOTES: Exam limited by patient body habitus, bowel gas, and rib spaces Pancreas: Dilated pancreatic duct measuring 1.0 cm Liver: wnl, no dilated ducts, masses or cysts. Gallbladder: Mild sludge visualized within Evidence for sonographic Paige's sign: No CBD: wnl Spleen: Portions visualized wnl Right Kidney: wnl, No hydronephrosis, calculi or masses seen Left Kidney: Anechoic area visualized at the upper pole measuring 2.1 x 1.5 x 1.6 cm Upper IVC: wnl Abd Aorta: wnl Dilated main pancreatic duct measuring up to 1.0 cm. Liver is unremarkable without focal lesion. No g allstones identified however there is some sludge layering within the gallbladder. No wall thickening or surrounding fluid. Negative sonographic Paige's sign. Common bile duct is within normal limits. The spleen is unremarkable. Both kidneys demonstrate no hydronephrosis or shadowing calculi. No solid renal masses identified. Simple cyst within the upper pole of the left kidney. The visualized upper IVC and abdominal aorta are within normal limits. IMPRESSION: 1. No ultrasound evidence for acute process. 2. Gallbladder sludge without evidence for acute cholecystitis. 3. Chronic pancreatic ductal dilatation. [facility], , 05/31/2025 2:20 PM
== END | disposition home or self-care (01) ==
LOC: RADUSWWP 13:20
PROVIDERS: ATTEND Internal Medicine
DX: K82.8 Other specified diseases of gallbladder (principal); K86.89 Other specified diseases of pancreas; R11.10 Vomiting, unspecified
CPT/HCPCS: 76700

== ENCOUNTER 2025-06-01 14:13 | Emergency (ER) | payer MEDICARE ==
[2025-06-01 14:26] VITALS: RESP 16
--- NOTE | 2025-06-01 14:55 | ED ---
General Adult HPI - General Chief complaint: Abdominal Pain Stated complaint: nvd/abd pain Time Seen by Provider: 06/01/25 14:22 Source: patient, family Mode of arrival: EMS Limitations: no limitations - History of Present Illness Initial comments: Dictation was produced using [employer] dictation software. please excuse any grammatical, word or spelling errors. Chief Complaint: 80-year-old male with right lower quadrant pain History of Present Illness: Patient is 80-year-old male presents to the emergency department a week and a half of right lower quadrant abdominal pain. Accompanied by his and daughter has been having symptoms in the right lower quadrant. Patient allegedly had a workup performed by primary care doctor. He currently had some sludge in the gallbladder will need a HIDA scan. Denies any fever. Denies any urinary symptoms. No nausea vomiting or diarrhea. Denies any constitutional symptoms. The ROS documented in this emergency department record has been reviewed and confirmed by me. Those systems with pertinent positive or negative responses have been documented in the HPI. All other systems are other negative and/or noncontributory. - Related Data Home Medications Medication Instructions Recorded Confirmed Cholecalciferol [Vitamin D3] 1,000 unit PO HS 06/28/18 06/28/18 Previous Rx's Medication Instructions Recorded Losartan [Cozaar] 50 mg PO DAILY #30 tab 06/29/18 traMADol HCl [Ultram] 50 mg PO Q4HR PRN 3 Days #18 tab 06/29/18 predniSONE [Deltasone] 20 mg PO DAILY #7 tab 04/05/25 predniSONE [Deltasone] 40 mg PO DAILY #7 tab 04/05/25 Ondansetron Odt [Zofran ODT] 4 mg PO Q8HR PRN #10 tab 05/19/25 Allergies Allergy/AdvReac Type Severity Reaction Status Date / Time hydromorphone HCl Allergy Anaphylaxis Verified 05/27/25 12:06 [From Dilaudid] prednisone Allergy Rash/Hives Verified 06/01/25 14:27 Review of Systems ROS Statement: Those systems with pertinent positive or pertinent negative responses have been documented in the HPI. ROS Other: All systems not noted in ROS Statement are negative. Past Medical History Past Medical History: CVA/TIA, Hypertension Additional Past Medical History / Comment(s): pancreatitis History of Any Multi-Drug Resistant Organisms: None Reported Past Surgical History: Hernia Repair Past Psychological History: No Psychological Hx Reported Smoking Status: Former smoker Past Alcohol Use History: None Reported Past Drug Use History: None Reported General Exam - General Exam Comments Initial Comments: PHYSICAL EXAM: General Impression: Alert and oriented x3, not in acute distress HEENT: Normocephalic atraumatic, extra-ocular movements intact, pupils equal and reactive to light bilaterally, mucous membranes moist. Cardiovascular: Heart regular rate and rhythm Chest: Able to complete full sentences, no retractions, no tachypnea Abdomen: abdomen soft, palpatory tenderness to the right lower quadrant, non- distended, no organomegaly Musculoskeletal: Pulses present and equal in all extremities, no peripheral edema Motor: no focal deficits noted Neurological: CN II-XII grossly intact, no focal motor or sensory deficits noted Skin: Intact with no visualized rashes Psych: Normal affect and mood Limitations: no limitations Course Vital Signs 06/01/25 14:19 Temperature 97.6 F Pulse Rate 79 Respiratory 16 Rate Blood Pressure 145/77 O2 Sat by Pulse 95 Oximetry EKG Findings - EKG Comments: EKG Findings:: My EKG interpretation: Ventricular rate 75, sinus rhythm, W[place] 172, QRS 88, QTc 400. No W[place] prolongation, no QTC prolongation, no ST or T-wave changes noted. EKG compared to May 27, 2025 showing no changes. Overall, this EKG is unremarkable Medical Decision Making - Medical Decision Making Was pt. sent in by a medical professional or institution (, PA, RN NURSERY, urgent care, hospital, or prison...) When possible be specific @ -No Did you speak to anyone other than the patient for history (EMS, parent, family, police, friend...)? What history was obtained from this source @ -Family as described above Did you review nursing and triage notes (agree or disagree)? Why? @ -I reviewed and agree with nursing and triage notes Were old charts reviewed (outside hosp., previous admission, EMS record, old EKG, old radiological studies, urgent care reports/EKG's, prison records)? Report findings @ -No old charts were reviewed Differential Diagnosis (chest pain, altered mental status, abdominal pain women, abdominal pain men, vaginal bleeding, musculoskeletal, weakness, fever, dyspnea, syncope, headache, dizziness, GI bleed, back pain, seizure, CVA, palpatations, mental health)? @ -Differential Abdominal Pain Men: Appendicitis, cholecystitis, diverticulosis, ischemic bowel, pancreatitis, hepatitis, UTI, gastroenteritis, AAA, incarcerated hernia, bowel obstruction, constipation, inflammatory bowel, hepatitis, peptic ulcer disease, splenic infarction, perforated viscus, testicular torsion, this is not meant to be an all-inclusive list EKG interpreted by me (3pts min.). @ -See above X-rays interpreted by me (1pt min.). @ -None done CT interpreted by me (1pt min.). @ -CT ab pelvis shows no acute processes U/S interpreted by me (1pt. min.). @ -None done What testing was considered but not performed or refused? (CT, X-rays, U/S, labs)? Why? @ -None What meds were considered but not given or refused? Why? @ -None Was smoking cessation discussed for >3mins.? @ -No Were there social determinants of health that impacted care today? How? (Homelessness, low income, unemployed, alcoholism, drug addiction, transp ortation, low edu. Level, literacy, decrease access to med. care, retirement, rehab)? @ -No Was there de-escalation of care discussed even if they declined (Discuss DNR or withdrawal of care, Hospice)? DNR status @ -No What co-morbidities impacted this encounter? (DM, HTN, Smoking, COPD, CAD, Cancer, CVA, ARF, Chemo, Hep., AIDS, mental health diagnosis, sleep apnea, morbid obesity)? @ -None Was patient admitted / discharged? Hospital course, mention meds given and route, prescriptions, significant lab abnormalities, going to OR and other pertinent info. @ -80-year-old male presents to the emergency department with abdominal pain. Is being worked up by his primary care doctor. Apparently is scheduled to have outpatient CT scan HIDA scan. Vital signs stable. Patient has some tenderness to the right lower quadrant however has nonsurgical abdomen. Laboratory evaluation obtained. Labs within acceptable limits. Urinalysis negative. CT shows no acute processes. Reevaluated at bedside 6:44 PM found to be stable to condition. Patient no acute distress. Vies follow-up with primary care doctor for further care and workup. Did you discuss the management of the patient with other professionals (professionals i.e. Dr., PA, RN NURSERY, lab, RT, psych nurse, social work msw, senior internal auditor, teacher, training and development officer, piano case maker)? Give summary @ -No Was critical care preformed (if so, how long)? @ -No Undiagnosed new problem with uncertain prognosis? @ -No Drug Therapy requiring intensive monitoring for toxicity (Heparin, Nitro, Insulin, Cardizem)? @ -No Were any procedures done? @ -No Diagnosis/symptom? Acute, or Chronic, or Acute on Chronic? Uncomplicated (without systemic symptoms) or Complicated (systemic symptoms)? @ -Abdominal pain, no high risk features Side effects of treatment? @ -No Exacerbation, Progression, or Severe Exacerbation? @ -No Poses a threat to life or bodily function? How? (Chest pain, USA, [place], pneumonia, PE, COPD, DKA, ARF, appy, cholecystitis, CVA, Diverticulitis, Homicidal, Suicidal, threat to staff... and all critical care pts) @ -No - Lab Data Result diagrams: 06/01/25 15:03 06/01/25 15:03 Lab Results 06/01/25 06/01/25 06/01/25 Range/Units 15:03 15:03 15:10 WBC 13.44 H (4.50-10.00) 10*3/uL RBC 4.62 (4.40-5.60) 10*6/uL Hgb 15.0 (13.0-17.0) g/dL Hct 42.9 (39.6-50.0) % MCV 92.9 (80.0-97.0) fL MCH 32.5 H (27.0-32.0) pg MCHC 35.0 (32.0-37.0) g/dL Plt Count 238 (140-440) 10*3/uL MPV 10.4 (9.5-12.2) fL Immature Gran % (Auto) 0.4 % Neutrophils % 85.8 % Lymphocytes % 6.9 % Monocytes % 6.6 % Eosinophils % 0.1 % Basophils % 0.2 % Immature Gran # 0.06 H (0.00-0.04) 10*3/uL Neutrophils # 11.51 H (1.80-7.70) 10*3/uL Lymphocytes # 0.93 (0.90-5.00) 10*3/uL Monocytes # 0.89 (0.20-1.00) 10*3/uL Eosinophils # 0.02 L (0.04-0.35) 10*3/uL Basophils # 0.03 (0.00-0.10) 10*3/uL Sodium 136 L (137-145) mmol/L Potassium 4.9 (3.5-5.1) mmol/L Chloride 101 (98-107) mmol/L Carbon Dioxide 24 (22-30) mmol/L Anion Gap 11 mmol/L BUN 16 (9-20) mg/dL Creatinine 0.76 (0.66-1.25) mg/dL Est GFR (CKD-EPI)AfAm >90 (>60 ml/min/1.73 sqM) Est GFR (CKD-EPI)NonAf 86 (>60 ml/min/1.73 sqM) Glucose 92 (74-99) mg/dL Calcium 9.7 (8.4-10.2) mg/dL Total Bilirubin 1.1 (0.2-1.3) mg/dL AST 38 (17-59) U/L ALT 27 (4-49) U/L Alkaline Phosphatase 67 (38-126) U/L Total Protein 7.0 (6.3-8.2) g/dL Albumin 4.1 (3.5-5.0) g/dL Lipase 63 (23-300) U/L Urine Color Colorless Urine Appearance Clear (Clear) Urine pH 6.0 (5.0-8.0) Ur Specific Reed >1.050 H (1.001-1.035) Urine Protein Negative (Negative) Urine Glucose (UA) Negative (Negative) Urine Ketones Negative (Negative) Urine Blood Negative (Negative) Urine Nitrite Negative (Negative) Urine Bilirubin Negative (Negative) Urine Urobilinogen <2.0 (<2.0) mg/dL Ur Leukocyte Esterase Negative (Negative) Disposition Clinical Impression: Abdominal pain Disposition: HOME SELF-CARE Instructions (If sedation given, give patient instructions): Abdominal Pain (ED) Is patient prescribed a controlled substance at d/c from ED?: No Referrals: Carito Jordan MD [Primary Care Provider] - 1-2 days Time of Disposition: 18:44
[2025-06-01 15:08] LABS: Basophils # (A) 0.03 10*3/uL (0.00-0.10); Basophils % (A) 0.2 %; Eosinophils # (A) 0.02 10*3/uL (0.04-0.35); Eosinophils % (A) 0.1 %; HCT 42.9 % (39.6-50.0); HGB 15.0 g/dL (13.0-17.0); Lymphocytes # (A) 0.93 10*3/uL (0.90-5.00); Lymphocytes % (A) 6.9 %; MCH 32.5 pg (27.0-32.0); MCHC 35.0 g/dL (32.0-37.0); MCV 92.9 fL (80.0-97.0); Monocytes # (A) 0.89 10*3/uL (0.20-1.00); Monocytes % (A) 6.6 %; Neutrophils # (A) 11.51 10*3/uL (1.80-7.70); Neutrophils % (A) 85.8 %; Platelet Count 238 10*3/uL (140-440); RBC 4.62 10*6/uL (4.40-5.60); RDW 12.5 % (11.5-14.5); WBC 13.44 10*3/uL (4.50-10.00)
[2025-06-01 15:19] LABS: ALT 27 U/L (4-49); African American GFR (CKD) >90 (>60 ml/min/1.73 sqM); Albumin 4.1 g/dL (3.5-5.0); Anion Gap 11 mmol/L; Blood Urea Nitrogen 16 mg/dL (9-20); Calcium 9.7 mg/dL (8.4-10.2); Carbon Dioxide 24 mmol/L (22-30); Chloride 101 mmol/L (98-107); Glucose 92 mg/dL (74-99); Lipase 63 U/L (23-300); Non-African American GFR(CKD) 86 (>60 ml/min/1.73 sqM); Sodium 136 mmol/L (137-145); Total Protein 7.0 g/dL (6.3-8.2)
[2025-06-01 15:23] LABS: AST 38 U/L (17-59); Alkaline Phosphatase 67 U/L (38-126); Potassium 4.9 mmol/L (3.5-5.1)
--- NOTE | 2025-06-01 16:42 | CT ---
EXAMINATION TYPE: CT abdomen pelvis w con DATE OF EXAM: 06/01/2025 4:05 PM COMPARISON: Ultrasound 05/31/2025. CT 06/28/2018 CLINICAL INDICATION: Male, 80 years old with history of rlq abdominal pain; RUQ pain, vomiting TECHNIQUE: Axial CT abdomen pelvis w con;Sagittal and coronal reformats were created on a separate w orkstation. Contrast used:100ml mL of Isovue 300 with IV Contrast, (none if empty) Oral contrast used: without Oral Contrast (none if empty) CT DLP: 837.7 mGycm, Automated exposure control for dose reduction was used. FINDINGS: LOWER CHEST: Severe coronary artery atherosclerosis and aortic valve consultations are moderate. ABDOMEN LIVER: Unremarkable GALLBLADDER AND BILE DUCTS: Unremarkable. PANCREAS: Dilation of the main pancreatic duct measuring up to 11 mm in the pancreatic body. Previous ly measuring up to 7 mm. No discrete mass visualized. Scattered calcifications in the pancreatic pare nchyma. SPLEEN: Unremarkable. ADRENAL GLANDS: Unremarkable. KIDNEYS AND URETERS: No evidence of hydronephrosis or obstructing renal calculus. The ureters are unr emarkable. Left renal cortical simple appearing cyst. No follow-up recommended. PELVIS BLADDER: No evidence for wall thickening or mass given limitations of exam. REPRODUCTIVE: Prostate is enlarged in size measuring 4.5 cm in transverse dimension. Vasectomy clips are present bilaterally. ABDOMEN & PELVIS STOMACH AND BOWEL: No evidence of bowel obstruction. The appendix is normal. Scattered colonic divert icula. PERITONEUM/RETROPERITONEUM: No evidence of pneumoperitoneum or free fluid. VASCULATURE: No evidence of aortic aneurysm. MUSCULOSKELETAL: No acute osseous abnormalities. Moderate disc degeneration changes are present throu ghout the thoracolumbar spine. LYMPH NODES: No gross evidence for lymphadenopathy. SOFT TISSUE/ABDOMINAL WALL: Unremarkable IMPRESSION: 1. Chronic pancreatitis changes with Dilated main pancreatic duct which is increased from 2018. No o bvious mass visualized. Findings could be sequela of prior pancreatitis. The biliary extra hepatic in trahepatic ducts are nondilated. Consider MRCP with IV contrast for further evaluation of the pancrea tic parenchyma and pancreatic duct. 2. No evidence for acute right lower quadrant process no obstructive uropathy or renal calculus. Nor mal-appearing appendix. 3. Colonic diverticulosis. 4. Mild prostatomegaly. 5. Severe coronary artery atherosclerosis. 6. Moderate aortic valve calcifications.. [facility], , 06/01/2025 4:40 PM
[2025-06-01 18:25] LABS: Bilirubin,Urine Negative (Negative); Blood,Urine Negative (Negative); Color,Urine Colorless; Glucose,Urine (UA) Negative (Negative); Ketones,Urine Negative (Negative); Leukocyte Esterase,Urine Negative (Negative); Nitrite,Urine Negative (Negative); PH, Urine 6.0 (5.0-8.0); Protein,Urine Negative (Negative); Urobilinogen,Urine <2.0 mg/dL (<2.0)
[2025-06-01 18:26] LABS: Specific Gravity,Urine >1.050 (1.001-1.035)
[2025-06-01 19:22] VITALS: BP 128/60; PULSE 72; TEMP 98.6
== END 2025-06-01 19:36 | disposition home or self-care (01) ==
LOC: EC 14:13
DX: R10.31 Right lower quadrant pain (principal); Z87.891 Personal history of nicotine dependence; Z88.5 Allergy status to narcotic agent; Z88.8 Allergy status to other drugs, medicaments and biological substances
CPT/HCPCS: 36415; 93005; 80053; 83690; 85025; 81003; 74177; 99284; Q9967